=== PATIENT | male | born 1955 | race Caucasian/White ===

== ENCOUNTER → 2019-12-12 10:51 | Outpatient (CLI) | payer MEDICARE, SELFPAY ==
[2019-12-12 21:16] LABS: COVID19 Sendout Not Detected (Not Detect)
== END ==
PROVIDERS: Visit Provider Registered Nurse
DX: Z01.812 Encounter for preprocedural laboratory examination (principal)
CPT/HCPCS: 87635

== ENCOUNTER 2019-12-17 06:43 | Day surgery (SDC) | payer MEDICARE, SELFPAY ==
[2019-12-11 11:51] VITALS: BMI 47.0
[2019-12-17] VITALS (7 sets, daily range): BP systolic 133–171; BP diastolic 70–85; PULSE 89–96; RESP 10–18; TEMP 37.2; O2SAT 92–95; BMI 47.0
--- NOTE | 2019-12-17 07:20 | SUR.OPER ---
Supine on padded OR bed, head on pillow, arms secured on padded arm boards at <90 degrees abduction, legs uncrossed, safety belt at thigh, tape over blanket over lower legs.
[2019-12-17] MEDS: LACTATED RINGERS 1,000 ML 42 ML IV (07:37)
--- NOTE | 2019-12-17 08:23 | PM.PREOP ---
Pre-operative Note COVID-19 COVID-19 status: Negative Interval Note History & Physical reviewed/Exam performed by Physician: Yes Changes to H&P: No
[2019-12-17] MEDS: CEFAZOLIN 2 GM/100 ML FROZ.PIGGY IV (08:24)
[2019-12-17] MEDS: CEFAZOLIN 1 GM/50 ML FROZ.PIGGY IV (08:24)
[2019-12-17] MEDS: BUPIVACAINE 0.5% (PF) VIAL 30 ML INJ (08:51)
[2019-12-17] MEDS: OXYCODONE IR 5 MG TABLET PO (10:14)
--- NOTE | 2019-12-17 18:09 | PM.OP.1 ---
Operative Date/Time/Diagnoses Date of procedure: 12/17/19 Time of procedure: 10:00 Pre-op diagnosis: Umbilical hernia acutely symptomatic but reducible. Post-op diagnosis: same Procedure & Clinicians Procedure: Repair of hernia with overlay mesh Same procedure as scheduled: Yes Indications: Symptomatic umbilical hernia. Surgeon: Evaristo Harris Click Yes if Unassisted: Yes Anesthesia Type: General Operative Notes Findings: Small defect. Easily reducible. Closure Type: primary Specimen(s): none sent Prosthetic devices, grafts, tissues, transplants, or devices: Light weight mesh overlay Estimated Blood Loss (mL): 10 Blood products transfused: none Procedure in detail: The patient was placed supine on the operating room table and underwent general LMA anesthesia. He was prepped and draped in the usual fashion. A curvilinear incision was made beneath his umbilicus and carried down under direct vision into the level of the fascia. The hernia sac was encountered and circumferentially dissected. It was dissected off the overlying umbilicus. I decided not to enter it but to reduce it and to keep the peritoneum intact and tried to place a piece of mesh under this. However when I completed circumferential dissection off the fascial ring it was pretty clear that this opening was small and I would have difficulty getting mesh under it. Rather than extend the defect I chose to close it primarily in incorporate lightweight mesh over it. This was accomplished using 1. Tycron on the fascia and 0 Tycron to secure the mesh to the anterior fascia. The piece of mesh placed and flattened went approximately 3-5 cm beyond the fascial defect once closed. The subcu was closed with 3 0 Vicryl tacking the umbilicus down to the fascia. Skin was closed running 4 0 Vicryl subcuticular stitch and Steri-Strips. Dressing was applied the patient was awakened extubated taken recovery room good condition Complications: none Post-operative Condition: stable Disposition: PACU
== END 2019-12-17 10:40 | disposition home or self-care (01) ==
PROVIDERS: Referring Provider Specialist; Visit Provider Specialist
PROC: (CPT 49585; principal; 2019-12-17 07:45)
DX: K42.9 Umbilical hernia without obstruction or gangrene (principal); I10 Essential (primary) hypertension; E03.9 Hypothyroidism, unspecified
CPT/HCPCS: 49585; C1781; J0690; J1100; J2250; J2405; J2704; J3010

== ENCOUNTER 2023-02-19 16:27 | Observation (INO) | payer OTHER, SELFPAY ==
[2023-02-19] VITALS (24 sets, daily range): BP systolic 123–232; BP diastolic 54–107; PULSE 53–78; RESP 11–36; TEMP 36.2–36.4; O2SAT 90–98; BMI 36.9
--- NOTE | 2023-02-19 16:33 | DI.CT.S_ITS ---
PROCEDURE: CT ANGIO CHEST ABDOMEN PELVIS INDICATIONS: 68-year-old male with severe abdominal pain, history of cirrhosis and esophageal varices treated with TIPS shunt and coils. TECHNIQUE: Precontrast 5 mm thick sections acquired from the lung apices to the iliac crests. After the administration of intravenous contrast, 2.5 mm thick sections again acquired from the lung apices to the iliac crests. Maximum intensity projection (MIP) oblique sagittal and coronal reformats were then acquired. For radiation dose reduction, the following was used: automated exposure control. COMPARISON: [facility], CT, CT CHEST WITHOUT CONTRAST, 12/20/2019, 16:40. FINDINGS: Chest: Cardiovascular: Heart size is normal. No evidence of pulmonary embolism, aortic aneurysm or dissection. Dense coronary artery vascular calcification. Lungs and pleural spaces: Emphysematous changes pulmonary parenchyma. Several right lower lobe pulmonary ground-glass nodules measure up to 9 mm Lymph nodes: No mediastinal, hilar or axillary adenopathy. Mediastinum: Unremarkable. No hiatal hernia. Thyroid within normal limits. Chest Wall and Bones: Bilateral gynecomastia Abdomen and Pelvis: Liver: Hepatic cirrhosis with capsular micro nodularity. TIPS shunt catheter in appropriate position, but patency is not evaluated given phase of enhancement Biliary system: Cholecystectomy Pancreas: Unremarkable without mass or inflammation evident. Spleen: The spleen is enlarged at 12.2 cm. No intrinsic mass lesion. Adrenals: Normal morphology and density. Reproductive system: Unremarkable as visualized. Urinary system: Normal renal size and attenuation. No renal calculi, hydronephrosis, or solid mass present. Urinary bladder unremarkable. Gastrointestinal system: The bowel is unremarkable with no evidence of bowel obstruction or inflammation. The stomach appears unremarkable. Multiple diverticula arise from the sigmoid colon without evidence of diverticulitis. Appendix: No findings to suggest acute appendicitis. Lymph nodes: No mesenteric or retroperitoneal adenopathy. Peritoneal spaces: No free air. No free fluid. Vasculature: Several para soft shelter vascular coils noted . Aorta unremarkable without aneurysm or dissection. No significant vascular shunts appreciated. Abdominal wall: Abdominal wall intact without evidence of ventral or inguinal hernias. Musculoskeletal: Normal bone mineralization. Degenerative disc disease and arthropathy noted in lower lumbar spine. No acute fractures. IMPRESSION: 1. Hepatic cirrhosis, TIPS shunt catheter and variceal coils noted. No significant patent collateral vessels appreciated. No ascites. 2. Diverticulosis without evidence of diverticulitis. Degenerative disc disease. 3. Right lower lobe ground-glass nodules measure less than 1 cm probably infectious or inflammatory. Consider 1 year follow-up. Approved by: Anthony Welch M.D. on 02/19/2023 at 16:48
--- NOTE | 2023-02-19 16:34 | ED_ITS ---
HPI - General Adult <Sherman Horvath DO - Last Filed: 02/19/23 17:15> General Chief complaint: Abdominal Pain Stated complaint: abd pain Time Seen by Provider: 02/19/23 16:32 History of Present Illness HPI narrative: 68-year-old male former smoker with history of hypertension, hypothyroid, extensive alcohol history resulting in cirrhosis, reported known gastric varices, TIPS procedure in 2020 at [facility] presents by EMS for evaluation of a sudden onset extreme abdominal pain with radiation to his back that brought him to his knees just prior to arrival. He was out eating with his and had this pain, he has had nausea and vomiting as well. He reports that he had endoscopy yesterday which was performed for routine screening. He denies any change in medications. He is had no fever or chills. Denies chest pain or shortness of breath. He was given fentanyl and Zofran prior to his arrival by EMS is feeling better. He is extremely hypertensive. He had a relatively similar episode yesterday which resolved on its own, also after eating Related Data Home Medications Medication Instructions Recorded Confirmed ascorbic acid (vitamin C) 100 mg 100 mg PO DAILY 02/19/23 02/19/23 tablet (Vitamin C) furosemide 40 mg tablet 20 mg PO DAILY 02/19/23 02/19/23 levothyroxine 150 mcg tablet 300 mcg PO QAM 02/19/23 02/19/23 magnesium 1 tab PO DAILY 02/19/23 02/19/23 multivit with minerals-iron 18 1 tab PO DAILY 02/19/23 02/19/23 mg-folic ac 400 mcg-vit K 25 mcg tablet (Adults Multivitamin) spironolactone 50 mg tablet 50 mg PO DAILY 02/19/23 02/19/23 vitamin B complex-vit B12 1 tab PO DAILY 02/19/23 02/19/23 zinc 25 mg tablet 1 mg PO DAILY 02/19/23 02/19/23 Allergies Allergy/AdvReac Type Severity Reaction Status Date / Time acetaminophen [From Tylenol] Allergy Intermediate Verified 12/17/19 07:21 Review of Systems <Shermna Horvath DO - Last Filed: 02/19/23 17:15> Review of Systems Narrative: GENERAL: Denies chills, fatigue, malaise, fever, sweats. HEENT: Denies sinus pain, ear pain, sore throat, difficulty swallowing, dizziness. RESPIRATORY: Denies dyspnea, cough, wheezing, hemoptysis, sputum. CARDIOVASCULAR: Denies chest pain, palpitations, orthopnea, edema, GASTROINTESTINAL: See HPI : Denies dysuria, frequency, incontinence, hematuria, urinary retention. MUSCULOSKELETAL: denies weakness, joint pain, or bony pain SKIN: Denies rash, skin lesions, or other NEUROLOGIC: Denies weakness, headache, numbness, change in speech, confusion, seizures, incoordination. PSYCHIATRIC: No concerning psychosocial issues. 12 point review of systems is negative except for those stated above Patient History <Sherman Horvath DO - Last Filed: 02/19/23 17:15> Medical History Essential hypertension History of kidney stones Hypothyroidism (acquired) Surgical History Status post laparoscopic cholecystectomy Social History household members: spouse Smoking Status: Former smoker alcohol intake: former substance use type: marijuana Smoking Status: Former smoker alcohol intake frequency: holidays/special occasions only Substance Use Type: marijuana Exam <Sherman Horvath DO - Last Filed: 02/19/23 17:15> Narrative Exam Narrative: GENERAL: [68] year old patient appears stated age. Well-developed patient, in mild distress. Holding an emesis bag HEAD: Atraumatic. Normocephalic. EYES: Pupils equal round and reactive. Extraocular motions intact. No scleral icterus. No injection or drainage. ENT: Nose without bleeding, purulent drainage. Throat without erythema, tonsillar hypertrophy or exudate. Airway patent. NECK: Trachea midline. Non tender CARDIOVASCULAR: Regular rate and rhythm without murmurs, gallops, or rubs. RESPIRATORY: Clear to auscultation. Breath sounds equal bilaterally. No wheezes, rales, or rhonchi. GASTROINTESTINAL: Abdomen soft, tender to palpate in the epigastrium nondistended. EXTREMITIES: No edema or joint tenderness. BACK: Nontender without deformity or crepitance. No flank tenderness. NEURO: AOx3. SKIN: No rash or erythema of visible areas Initial Vital Signs Initial Vital Signs: Vital Signs Temperature 97.6 F 02/19/23 16:29 Pulse Rate 78 02/19/23 16:29 Respiratory Rate 16 02/19/23 16:29 Blood Pressure 232/107 H 02/19/23 16:29 Pulse Oximetry 97 02/19/23 16:29 Oxygen Delivery Method Room Air 02/19/23 16:29 <Lilo Page, DO - Last Filed: 02/19/23 20:36> Initial Vital Signs Initial Vital Signs: Vital Signs Temperature 97.6 F 02/19/23 16:29 Pulse Rate 78 02/19/23 16:29 Respiratory Rate 16 02/19/23 16:29 Blood Pressure 232/107 H 02/19/23 16:29 Pulse Oximetry 97 02/19/23 16:29 Oxygen Delivery Method Room Air 02/19/23 16:29 Course <Sherman Horvath, DO - Last Filed: 02/19/23 17:15> Orders Ordered: Hydralazine HCl (Hydralazine 25 Mg Tablet) 25 mg PO Q4HR PRN PRN Reason: SBP >160 Sodium Chloride (Normal Saline 0.9%) 1,000 mls @ 125 mls/hr IV CONT [facility] Last Admin: 02/19/23 21:45 Dose: 125 mls/hr Documented By: BRONWYN Levothyroxine Sodium (Levothyroxine 50 Mcg Tablet) 50 mcg PO 0600 [facility] Losartan Potassium (Losartan 25 Mg Tablet) 25 mg PO DAILY [facility] Morphine Sulfate (Morphine 4 Mg/Ml Inj) 4 mg IV Q2HR PRN PRN Reason: Abdominal pain Ondansetron HCl (Ondansetron 4 Mg/2 Ml Inj) 4 mg IV Q4HR PRN PRN Reason: Nausea And Vomiting Oxycodone HCl (Oxycodone Ir 5 Mg Tablet) 5 mg PO Q4H PRN PRN Reason: Pain, Moderate (4-6) Pantoprazole Sodium (Pantoprazole 40 Mg Vial) 40 mg IV BID [facility] Last Admin: 02/19/23 22:43 Dose: Not Given Documented By: BRONWYN Discontinued Medications Morphine Sulfate (Morphine 4 Mg/Ml Inj) 4 mg IV Q2HR [facility] Last Admin: 02/19/23 22:49 Dose: 4 mg Documented By: BRONWYN Pantoprazole Sodium (Pantoprazole 40 Mg Vial) 40 mg IV NOW ONE Stop: 02/19/23 16:33 Last Admin: 02/19/23 16:40 Dose: 40 mg Documented By: CTS Vital Signs Vital signs: Vital Signs - 8 hr 02/19/23 16:29 02/19/23 16:37 02/19/23 17:06 Temperature 97.6 F Pulse Rate 78 76 Respiratory Rate 16 14 Blood Pressure 232/107 H 185/81 H Pulse Oximetry 97 95 Oxygen Delivery Method Room Air 02/19/23 16:40 02/19/23 16:40 02/19/23 17:00 Temperature Pulse Rate 74 64 Respiratory Rate 14 25 H Blood Pressure 214/99 H Pulse Oximetry 94 96 Oxygen Delivery Method 02/19/23 17:05 02/19/23 17:05 02/19/23 17:10 Temperature Pulse Rate 69 Respiratory Rate 12 Blood Pressure 185/81 H 211/87 H Pulse Oximetry 97 Oxygen Delivery Method 02/19/23 17:10 02/19/23 17:17 02/19/23 17:17 Temperature Pulse Rate 58 L 76 Respiratory Rate 36 H Blood Pressure 191/81 H Pulse Oximetry 98 96 Oxygen Delivery Method 02/19/23 17:20 02/19/23 17:20 02/19/23 17:25 Temperature Pulse Rate 62 63 Respiratory Rate 18 14 Blood Pressure 189/74 H Pulse Oximetry 98 98 Oxygen Delivery Method 02/19/23 17:25 02/19/23 17:30 02/19/23 17:30 Temperature Pulse Rate 63 Respiratory Rate 11 L Blood Pressure 175/81 H 180/82 H Pulse Oximetry 96 Oxygen Delivery Method 02/19/23 17:35 02/19/23 17:35 02/19/23 18:00 Temperature Pulse Rate 66 Respiratory Rate 21 Blood Pressure 168/79 H 156/74 H Pulse Oximetry 94 Oxygen Delivery Method 02/19/23 18:00 02/19/23 18:30 02/19/23 18:56 Temperature Pulse Rate 74 60 Respiratory Rate 15 Blood Pressure 167/78 H Pulse Oximetry 94 Oxygen Delivery Method 02/19/23 18:56 02/19/23 19:00 02/19/23 19:01 Temperature Pulse Rate 68 59 L 60 Respiratory Rate Blood Pressure Pulse Oximetry 96 95 96 Oxygen Delivery Method 02/19/23 19:01 02/19/23 19:30 02/19/23 19:31 Temperature Pulse Rate 71 Respiratory Rate Blood Pressure 167/72 H 130/60 Pulse Oximetry 90 L Oxygen Delivery Method 02/19/23 19:31 Temperature Pulse Rate 67 Respiratory Rate Blood Pressure Pulse Oximetry 94 Oxygen Delivery Method <Lilo Page DO - Last Filed: 02/19/23 20:36> Orders Ordered: Hydralazine HCl (Hydralazine 25 Mg Tablet) 25 mg PO Q4HR PRN PRN Reason: SBP >160 Sodium Chloride (Normal Saline 0.9%) 1,000 mls @ 125 mls/hr IV CONT [facility] Last Admin: 02/19/23 21:45 Dose: 125 mls/hr Documented By: BRONWYN Levothyroxine Sodium (Levothyroxine 50 Mcg Tablet) 50 mcg PO 0600 [facility] Losartan Potassium (Losartan 25 Mg Tablet) 25 mg PO DAILY [facility] Morphine Sulfate (Morphine 4 Mg/Ml Inj) 4 mg IV Q2HR PRN PRN Reason: Abdominal pain Ondansetron HCl (Ondansetron 4 Mg/2 Ml Inj) 4 mg IV Q4HR PRN PRN Reason: Nausea And Vomiting Oxycodone HCl (Oxycodone Ir 5 Mg Tablet) 5 mg PO Q4H PRN PRN Reason: Pain, Moderate (4-6) Pantoprazole Sodium (Pantoprazole 40 Mg Vial) 40 mg IV BID [facility] Last Admin: 02/19/23 22:43 Dose: Not Given Documented By: BRONWYN Discontinued Medications Morphine Sulfate (Morphine 4 Mg/Ml Inj) 4 mg IV Q2HR [facility] Last Admin: 02/19/23 22:49 Dose: 4 mg Documented By: BRONWYN Pantoprazole Sodium (Pantoprazole 40 Mg Vial) 40 mg IV NOW ONE Stop: 02/19/23 16:33 Last Admin: 02/19/23 16:40 Dose: 40 mg Documented By: ARTI Vital Signs Vital signs: Vital Signs - 8 hr 02/19/23 16:29 02/19/23 16:37 02/19/23 17:06 Temperature 97.6 F Pulse Rate 78 76 Respiratory Rate 16 14 Blood Pressure 232/107 H 185/81 H Pulse Oximetry 97 95 Oxygen Delivery Method Room Air 02/19/23 16:40 02/19/23 16:40 02/19/23 17:00 Temperature Pulse Rate 74 64 Respiratory Rate 14 25 H Blood Pressure 214/99 H Pulse Oximetry 94 96 Oxygen Delivery Method 02/19/23 17:05 02/19/23 17:05 02/19/23 17:10 Temperature Pulse Rate 69 Respiratory Rate 12 Blood Pressure 185/81 H 211/87 H Pulse Oximetry 97 Oxygen Delivery Method 02/19/23 17:10 02/19/23 17:17 02/19/23 17:17 Temperature Pulse Rate 58 L 76 Respiratory Rate 36 H Blood Pressure 191/81 H Pulse Oximetry 98 96 Oxygen Delivery Method 02/19/23 17:20 02/19/23 17:20 02/19/23 17:25 Temperature Pulse Rate 62 63 Respiratory Rate 18 14 Blood Pressure 189/74 H Pulse Oximetry 98 98 Oxygen Delivery Method 02/19/23 17:25 02/19/23 17:30 02/19/23 17:30 Temperature Pulse Rate 63 Respiratory Rate 11 L Blood Pressure 175/81 H 180/82 H Pulse Oximetry 96 Oxygen Delivery Method 02/19/23 17:35 02/19/23 17:35 02/19/23 18:00 Temperature Pulse Rate 66 Respiratory Rate 21 Blood Pressure 168/79 H 156/74 H Pulse Oximetry 94 Oxygen Delivery Method 02/19/23 18:00 02/19/23 18:30 02/19/23 18:56 Temperature Pulse Rate 74 60 Respiratory Rate 15 Blood Pressure 167/78 H Pulse Oximetry 94 Oxygen Delivery Method 02/19/23 18:56 02/19/23 19:00 02/19/23 19:01 Temperature Pulse Rate 68 59 L 60 Respiratory Rate Blood Pressure Pulse Oximetry 96 95 96 Oxygen Delivery Method 02/19/23 19:01 02/19/23 19:30 02/19/23 19:31 Temperature Pulse Rate 71 Respiratory Rate Blood Pressure 167/72 H 130/60 Pulse Oximetry 90 L Oxygen Delivery Method 02/19/23 19:31 Temperature Pulse Rate 67 Respiratory Rate Blood Pressure Pulse Oximetry 94 Oxygen Delivery Method Medical Decision Making <Sherman Horvath, DO - Last Filed: 02/19/23 17:15> Lab Data 02/19/23 14:35 02/19/23 14:35 Labs: Lab Results 02/19/23 02/19/23 02/19/23 Range/Units 14:35 14:35 14:35 WBC 14.3 H (4.5-11.0) X10^3/uL RBC 4.82 (4.5-5.9) X10^6/uL Hgb 15.7 (13.5-17.5) g/dL Hct 44.9 (41-53) % MCV 93.2 (80-100) fL MCH 32.7 (26-34) PG MCHC 35.0 (30-36) % RDW 15.5 H (11.6-14.8) % Plt Count 134 L (150-400) X10^3/uL Neut % (Auto) 51.0 (50-75) % Lymph % (Auto) 32.2 (25-40) % [place] % (Auto) 13.1 (3-14) % Eos % (Auto) 2.7 (2-4) % Baso % (Auto) 1.0 (0-2) % Neut # (Auto) 7300 H (2063-1533) /uL Lymph # (Auto) 4600 H (8903-3968) /uL [place] # (Auto) 1900 H (0-900) /uL Eos # (Auto) 400 (0-450) /uL Baso # (Auto) 100 (0-100) /uL PT 13.0 H (10.1-12.7) SECONDS INR 1.1 (0.9-1.3) APTT 37 H (26-36) SECONDS Sodium 134 L (137-145) mmol/L Potassium 4.0 (3.4-5.1) mmol/L Chloride 102 (98-107) mmol/L Carbon Dioxide 23 (22-32) mmol/L BUN 32 H (9-20) mg/dL Creatinine 1.48 H (0.66-1.25) mg/dL Estimated GFR 51 L (>60) mL/min BUN/Creatinine Ratio 21.6 (6-22) Glucose 150 H (80-110) mg/dL Lactate (0.7-2.1) mmol/L Calcium 9.0 (8.4-10.2) mg/dL Magnesium 1.6 (1.6-2.3) mg/dL Total Bilirubin 1.2 (0.2-1.3) mg/dL AST 62 H (17-59) IU/L ALT 49 (<50) IU/L Alkaline Phosphatase 225 H (38-126) U/L Total Creatine Kinase 38 L (55-170) U/L Troponin I 0.056 H (0.01-0.034) ng/mL NT-Pro-B Natriuret Pep 355 H (<125) pg/mL Total Protein 7.8 (6.3-8.2) g/dL Albumin 4.1 (3.5-5.0) g/dL Globulin 3.7 (1.7-4.1) g/dL Albumin/Globulin Ratio 1.1 (1.0-2.8) Lipase 2608 H (23-300) U/L Blood Type Antibody Screen 02/19/23 02/19/23 02/19/23 Range/Units 14:35 14:35 18:25 WBC (4.5-11.0) X10^3/uL RBC (4.5-5.9) X10^6/uL Hgb (13.5-17.5) g/dL Hct (41-53) % MCV (80-100) fL MCH (26-34) PG MCHC (30-36) % RDW (11.6-14.8) % Plt Count (150-400) X10^3/uL Neut % (Auto) (50-75) % Lymph % (Auto) (25-40) % [place] % (Auto) (3-14) % Eos % (Auto) (2-4) % Baso % (Auto) (0-2) % Neut # (Auto) (4752-4987) /uL Lymph # (Auto) (8176-2853) /uL [place] # (Auto) (0-900) /uL Eos # (Auto) (0-450) /uL Baso # (Auto) (0-100) /uL PT (10.1-12.7) SECONDS INR (0.9-1.3) APTT (26-36) SECONDS Sodium (137-145) mmol/L Potassium (3.4-5.1) mmol/L Chloride (98-107) mmol/L Carbon Dioxide (22-32) mmol/L BUN (9-20) mg/dL Creatinine (0.66-1.25) mg/dL Estimated GFR (>60) mL/min BUN/Creatinine Ratio (6-22) Glucose (80-110) mg/dL Lactate 2.5 H (0.7-2.1) mmol/L Calcium (8.4-10.2) mg/dL Magnesium (1.6-2.3) mg/dL Total Bilirubin (0.2-1.3) mg/dL AST (17-59) IU/L ALT (<50) IU/L Alkaline Phosphatase (38-126) U/L Total Creatine Kinase (55-170) U/L Troponin I 0.087 H (0.01-0.034) ng/mL NT-Pro-B Natriuret Pep (<125) pg/mL Total Protein (6.3-8.2) g/dL Albumin (3.5-5.0) g/dL Globulin (1.7-4.1) g/dL Albumin/Globulin Ratio (1.0-2.8) Lipase (23-300) U/L Blood Type O Positive Antibody Screen Negative 02/19/23 Range/Units 18:40 WBC (4.5-11.0) X10^3/uL RBC (4.5-5.9) X10^6/uL Hgb (13.5-17.5) g/dL Hct (41-53) % MCV (80-100) fL MCH (26-34) PG MCHC (30-36) % RDW (11.6-14.8) % Plt Count (150-400) X10^3/uL Neut % (Auto) (50-75) % Lymph % (Auto) (25-40) % [place] % (Auto) (3-14) % Eos % (Auto) (2-4) % Baso % (Auto) (0-2) % Neut # (Auto) (1680-8950) /uL Lymph # (Auto) (1258-8635) /uL [place] # (Auto) (0-900) /uL Eos # (Auto) (0-450) /uL Baso # (Auto) (0-100) /uL PT (10.1-12.7) SECONDS INR (0.9-1.3) APTT (26-36) SECONDS Sodium (137-145) mmol/L Potassium (3.4-5.1) mmol/L Chloride (98-107) mmol/L Carbon Dioxide (22-32) mmol/L BUN (9-20) mg/dL Creatinine (0.66-1.25) mg/dL Estimated GFR (>60) mL/min BUN/Creatinine Ratio (6-22) Glucose (80-110) mg/dL Lactate 1.4 (0.7-2.1) mmol/L Calcium (8.4-10.2) mg/dL Magnesium (1.6-2.3) mg/dL Total Bilirubin (0.2-1.3) mg/dL AST (17-59) IU/L ALT (<50) IU/L Alkaline Phosphatase (38-126) U/L Total Creatine Kinase (55-170) U/L Troponin I (0.01-0.034) ng/mL NT-Pro-B Natriuret Pep (<125) pg/mL Total Protein (6.3-8.2) g/dL Albumin (3.5-5.0) g/dL Globulin (1.7-4.1) g/dL Albumin/Globulin Ratio (1.0-2.8) Lipase (23-300) U/L Blood Type Antibody Screen MDM Narrative Medical decision making narrative: CC: 68 year old male with severe epigastric pain with radiation to his back Complicating co-morbidities: Age, hypertension, prior liver history status post TIPS, recent endoscopy Data collected from: Patient Differential considered, but not limited to: Pancreatitis versus gallbladder disease versus dissection versus other Exam documented above, pertinent findings include: Severe epigastric pain on exam, heart rate regular, lungs clear Lab Test results independently reviewed as above. Pertinent findings: Leukocytosis without true left shift, no signs of anemia, creatinine 1.48, chief FR 51, lactate 2.5, troponin 0.056, lipase 2608 Independently reviewed EKG as above Imaging studies independently reviewed: Scores Used: MIPS Elements: Consultations: Treatments: Re-evaluations: Discussion: Disposition: see below, along with detailed discharge instructions that have been reviewed with patient as well as indications for ED re-evaluation and additional outpatient follow up <Lilo Page, DO - Last Filed: 02/19/23 20:36> Lab Data Labs: Lab Results 02/19/23 02/19/23 02/19/23 Range/Units 14:35 14:35 14:35 WBC 14.3 H (4.5-11.0) X10^3/uL RBC 4.82 (4.5-5.9) X10^6/uL Hgb 15.7 (13.5-17.5) g/dL Hct 44.9 (41-53) % MCV 93.2 (80-100) fL MCH 32.7 (26-34) PG MCHC 35.0 (30-36) % RDW 15.5 H (11.6-14.8) % Plt Count 134 L (150-400) X10^3/uL Neut % (Auto) 51.0 (50-75) % Lymph % (Auto) 32.2 (25-40) % [place] % (Auto) 13.1 (3-14) % Eos % (Auto) 2.7 (2-4) % Baso % (Auto) 1.0 (0-2) % Neut # (Auto) 7300 H (4687-1566) /uL Lymph # (Auto) 4600 H (9640-8630) /uL [place] # (Auto) 1900 H (0-900) /uL Eos # (Auto) 400 (0-450) /uL Baso # (Auto) 100 (0-100) /uL PT 13.0 H (10.1-12.7) SECONDS INR 1.1 (0.9-1.3) APTT 37 H (26-36) SECONDS Sodium 134 L (137-145) mmol/L Potassium 4.0 (3.4-5.1) mmol/L Chloride 102 (98-107) mmol/L Carbon Dioxide 23 (22-32) mmol/L BUN 32 H (9-20) mg/dL Creatinine 1.48 H (0.66-1.25) mg/dL Estimated GFR 51 L (>60) mL/min BUN/Creatinine Ratio 21.6 (6-22) Glucose 150 H (80-110) mg/dL Lactate (0.7-2.1) mmol/L Calcium 9.0 (8.4-10.2) mg/dL Magnesium 1.6 (1.6-2.3) mg/dL Total Bilirubin 1.2 (0.2-1.3) mg/dL AST 62 H (17-59) IU/L ALT 49 (<50) IU/L Alkaline Phosphatase 225 H (38-126) U/L Total Creatine Kinase 38 L (55-170) U/L Troponin I 0.056 H (0.01-0.034) ng/mL NT-Pro-B Natriuret Pep 355 H (<125) pg/mL Total Protein 7.8 (6.3-8.2) g/dL Albumin 4.1 (3.5-5.0) g/dL Globulin 3.7 (1.7-4.1) g/dL Albumin/Globulin Ratio 1.1 (1.0-2.8) Lipase 2608 H (23-300) U/L Blood Type Antibody Screen 02/19/23 02/19/23 02/19/23 Range/Units 14:35 14:35 18:25 WBC (4.5-11.0) X10^3/uL RBC (4.5-5.9) X10^6/uL Hgb (13.5-17.5) g/dL Hct (41-53) % MCV (80-100) fL MCH (26-34) PG MCHC (30-36) % RDW (11.6-14.8) % Plt Count (150-400) X10^3/uL Neut % (Auto) (50-75) % Lymph % (Auto) (25-40) % [place] % (Auto) (3-14) % Eos % (Auto) (2-4) % Baso % (Auto) (0-2) % Neut # (Auto) (6708-9664) /uL Lymph # (Auto) (8650-9398) /uL [place] # (Auto) (0-900) /uL Eos # (Auto) (0-450) /uL Baso # (Auto) (0-100) /uL PT (10.1-12.7) SECONDS INR (0.9-1.3) APTT (26-36) SECONDS Sodium (137-145) mmol/L Potassium (3.4-5.1) mmol/L Chloride (98-107) mmol/L Carbon Dioxide (22-32) mmol/L BUN (9-20) mg/dL Creatinine (0.66-1.25) mg/dL Estimated GFR (>60) mL/min BUN/Creatinine Ratio (6-22) Glucose (80-110) mg/dL Lactate 2.5 H (0.7-2.1) mmol/L Calcium (8.4-10.2) mg/dL Magnesium (1.6-2.3) mg/dL Total Bilirubin (0.2-1.3) mg/dL AST (17-59) IU/L ALT (<50) IU/L Alkaline Phosphatase (38-126) U/L Total Creatine Kinase (55-170) U/L Troponin I 0.087 H (0.01-0.034) ng/mL NT-Pro-B Natriuret Pep (<125) pg/mL Total Protein (6.3-8.2) g/dL Albumin (3.5-5.0) g/dL Globulin (1.7-4.1) g/dL Albumin/Globulin Ratio (1.0-2.8) Lipase (23-300) U/L Blood Type O Positive Antibody Screen Negative 02/19/23 Range/Units 18:40 WBC (4.5-11.0) X10^3/uL RBC (4.5-5.9) X10^6/uL Hgb (13.5-17.5) g/dL Hct (41-53) % MCV (80-100) fL MCH (26-34) PG MCHC (30-36) % RDW (11.6-14.8) % Plt Count (150-400) X10^3/uL Neut % (Auto) (50-75) % Lymph % (Auto) (25-40) % [place] % (Auto) (3-14) % Eos % (Auto) (2-4) % Baso % (Auto) (0-2) % Neut # (Auto) (4048-0630) /uL Lymph # (Auto) (5983-4288) /uL [place] # (Auto) (0-900) /uL Eos # (Auto) (0-450) /uL Baso # (Auto) (0-100) /uL PT (10.1-12.7) SECONDS INR (0.9-1.3) APTT (26-36) SECONDS Sodium (137-145) mmol/L Potassium (3.4-5.1) mmol/L Chloride (98-107) mmol/L Carbon Dioxide (22-32) mmol/L BUN (9-20) mg/dL Creatinine (0.66-1.25) mg/dL Estimated GFR (>60) mL/min BUN/Creatinine Ratio (6-22) Glucose (80-110) mg/dL Lactate 1.4 (0.7-2.1) mmol/L Calcium (8.4-10.2) mg/dL Magnesium (1.6-2.3) mg/dL Total Bilirubin (0.2-1.3) mg/dL AST (17-59) IU/L ALT (<50) IU/L Alkaline Phosphatase (38-126) U/L Total Creatine Kinase (55-170) U/L Troponin I (0.01-0.034) ng/mL NT-Pro-B Natriuret Pep (<125) pg/mL Total Protein (6.3-8.2) g/dL Albumin (3.5-5.0) g/dL Globulin (1.7-4.1) g/dL Albumin/Globulin Ratio (1.0-2.8) Lipase (23-300) U/L Blood Type Antibody Screen Imaging Data CTA chest/abd/pelvis: Radiologist's Impression: Deo Chambers??68??M??1955 ? Allergy/Adv: acetaminophen Close Chest/Abdomen/Pelvis CTA (Signed) Anthony Welch - 02/19/23 Launch?[place] [address] CT Scan Report Signed Patient: Deo Chambers MR#: [id number] : 1955 Acct:[id number] Age/Sex: 68 / M Date of Service: 02/19/23 Loc: ED Accession Number: [id number] ?? Procedure: CT angio chest abdomen pelvis Ordering Provider: Sherman Horvath D.O. PROCEDURE:? CT ANGIO CHEST ABDOMEN PELVIS ? INDICATIONS:? 68-year-old male with severe abdominal pain, history of cirrhosis and esophageal varices treated with TIPS shunt and coils.? ? TECHNIQUE:? Precontrast 5 mm thick sections acquired from the lung apices to the iliac crests.? After the administration of intravenous contrast, 2.5 mm thick sections again acquired from the lung apices to the iliac crests.? Maximum intensity projection (MIP) oblique sagittal and coronal reformats were then acquired.? For radiation dose reduction, the following was used:? automated exposure control.? ? COMPARISON:? [facility], CT, CT CHEST WITHOUT CONTRAST, 12/20/2019, 16:40. ? FINDINGS: ? Chest: ? Cardiovascular:? Heart size is normal.? No evidence of pulmonary embolism, aortic aneurysm or dissection.? Dense coronary artery vascular calcification. ? Lungs and pleural spaces:? Emphysematous changes pulmonary parenchyma.? Several right lower lobe pulmonary ground-glass nodules measure up to 9 mm ? Lymph nodes:? No mediastinal, hilar or axillary adenopathy. ? Mediastinum:? Unremarkable.? No hiatal hernia.? Thyroid within normal limits. ? Chest Wall and Bones:? Bilateral gynecomastia ? Abdomen and Pelvis: ? Liver:? Hepatic cirrhosis with capsular micro nodularity.? TIPS shunt catheter in appropriate position, but patency is not evaluated given phase of enhancement Biliary system:? Cholecystectomy ? Pancreas:? Unremarkable without mass or inflammation evident. ? Spleen:? The spleen is enlarged at 12.2 cm.? No intrinsic mass lesion. ? Adrenals:? Normal morphology and density. ? Reproductive system:? Unremarkable as visualized. ? Urinary system:? Normal renal size and attenuation. No renal calculi, hydronephrosis, or solid mass present.? Urinary bladder unremarkable. ? Gastrointestinal system:? The bowel is unremarkable with no evidence of bowel obstruction or inflammation. The stomach appears unremarkable.? Multiple diverticula arise from the sigmoid colon without evidence of diverticulitis. ? ? Appendix:? No findings to suggest acute appendicitis. ? Lymph nodes:? No mesenteric or retroperitoneal adenopathy. ? Peritoneal spaces: ? No free air. No free fluid.? ? Vasculature:? Several para soft prison vascular coils noted .? Aorta unremarkable without aneurysm or dissection.? No significant vascular shunts appreciated. ? Abdominal wall:? Abdominal wall intact without evidence of ventral or inguinal hernias. ? Musculoskeletal:? Normal bone mineralization.? Degenerative disc disease and arthropathy noted in lower lumbar spine.? No acute fractures.? ? IMPRESSION: ? 1.? Hepatic cirrhosis, TIPS shunt catheter and variceal coils noted.? No significant patent collateral vessels appreciated.? No ascites. ? 2. Diverticulosis without evidence of diverticulitis.? Degenerative disc diseas e. ? 3. Right lower lobe ground-glass nodules measure less than 1 cm probably infectious or inflammatory.? Consider 1 year follow-up.? Approved by: Anthony Welch M.D. on 02/19/2023 at 16:48? ECG Data Attestation: I personally reviewed and interpreted this ECG as follows: Interpretation: Sinus rhythm with first-degree AV block rate 80 AK 2-4, QRS of [address] elevation depression noted. EKG 2. Sinus bradycardia rate of 57 AK 208 QRS of [address] No [address] elevation or depression appreciated. No acute or dynamic changes noted. MDM Narrative Medical decision making narrative: CC: 68 year old male with severe epigastric pain with radiation to his back Complicating co-morbidities: Age, hypertension, prior liver history status post TIPS, recent endoscopy Data collected from: Patient Differential considered, but not limited to: Pancreatitis versus gallbladder disease versus dissection versus other Exam documented above, pertinent findings include: Severe epigastric pain on exam, heart rate regular, lungs clear Lab Test results independently reviewed as above. Pertinent findings: Leukocytosis without true left shift, no signs of anemia, creatinine 1.48, chief FR 51, lactate 2.5, troponin 0.056, lipase 2608 Independently reviewed EKG as above Imaging studies independently reviewed: Scores Used: MIPS Elements: Consultations: Treatments: Re-evaluations: Discussion: Disposition: see below, along with detailed discharge instructions that have been reviewed with patient as well as indications for ED re-evaluation and additional outpatient follow up. 02/19/23 Mank: Patient signed out to myself by Dr. Horvath. Patient feels much improved at this time. He is currently asymptomatic. Reviewed his labs history workup so far. He is not having any chest pain he states it was all epigastric in his has all resolved. Case was discussed with Gastroenterology through Spanish. At this time based on findings they agree with plan for treating his usual pancreatitis does not require transfer but also agree with plan to repeat lactate, if patient has worsening or having other new changes they are happy to be reconsulted as needed. Spoke with Dr. Fairchild tele hospitalist who accepts for observation. Discharge Plan Departure Patient Disposition: Admitted As Inpatient Clinical Impression: Pancreatitis, Ground glass opacity present on imaging of lung, Hepatic cirrhosis
--- NOTE | 2023-02-19 16:38 | PC.NURSE ---
Bedside FAST US performed by Dr Horvath. Pt tolerated well.
[2023-02-19] MEDS: PANTOPRAZOLE 40 MG VIAL IV (16:40)
[2023-02-19 16:45] LABS: Add Manual Diff / Slide Review NO; Basophils Absolute Auto 100 /uL (0-100); Eosinophils Absolute Auto 400 /uL (0-450); Eosinophils Percent Auto 2.7 % (2-4); Hematocrit 44.9 % (41-53); Hemoglobin 15.7 g/dL (13.5-17.5); Lymphocytes Absolute Auto 4600 /uL (1100-4500); Lymphocytes Percent Auto 32.2 % (25-40); Mean Corpuscular Hemoglobin 32.7 PG (26-34); Mean Corpuscular Volume 93.2 fL (80-100); Monocytes Absolute Auto 1900 /uL (0-900); Monocytes Percent Auto 13.1 % (3-14); Neutrophils Absolute Auto 7300 /uL (1500-7000); Platelet Count 134 X10^3/uL (150-400); Red Blood Cell Count 4.82 X10^6/uL (4.5-5.9); Red Cell Distribution Width 15.5 % (11.6-14.8); White Blood Cell Count 14.3 X10^3/uL (4.5-11.0)
[2023-02-19 16:54] LABS: INR 1.1 (0.9-1.3)
[2023-02-19 16:57] LABS: Lactate (Lactic Acid) 2.5 mmol/L (0.7-2.1); PTT Partial Thromboplastin Tim 37 SECONDS (26-36)
[2023-02-19 16:59] LABS: Alanine Aminotransferase 49 IU/L (<50); Albumin 4.1 g/dL (3.5-5.0); Albumin Globulin Ratio 1.1 (1.0-2.8); Alkaline Phosphatase 225 U/L (38-126); Aspartate Aminotransferase 62 IU/L (17-59); BUN Creatinine Ratio 21.6 (6-22); Bilirubin Total 1.2 mg/dL (0.2-1.3); Blood Urea Nitrogen 32 mg/dL (9-20); Carbon Dioxide 23 mmol/L (22-32); Chloride 102 mmol/L (98-107); Creatine Kinase 38 U/L (55-170); Estimated Glomerular Filt Rate 51 mL/min (>60); Globulin 3.7 g/dL (1.7-4.1); Glucose 150 mg/dL (80-110); HEMOLYSIS 38 (0-50); Magnesium 1.6 mg/dL (1.6-2.3); Sodium 134 mmol/L (137-145); Total Protein 7.8 g/dL (6.3-8.2)
[2023-02-19 17:07] LABS: Lipase 2608 U/L (23-300)
--- NOTE | 2023-02-19 17:08 | PC.NURSE ---
1645: Transported to CT with RN and monitor 1700: Back from CT. Pt c/o 09/30 epigastric abdominal pain with nausea. No vomiting. at bedside.
[2023-02-19 17:10] LABS: NT-proBNP (BNP-Adult 18+) 355 pg/mL (<125); Troponin I 0.056 ng/mL (0.01-0.034)
[2023-02-19 18:41] LABS: Reflexed Lactate in 2 Hours Y
[2023-02-19 18:58] LABS: Lactate 2HR (Lactic Acid Rflx) 1.4 mmol/L (0.7-2.1)
[2023-02-19 19:05] LABS: Troponin I 0.087 ng/mL (0.01-0.034)
--- NOTE | 2023-02-19 19:17 | PC.NURSE ---
Pt resting comfortably. still at bedside. Warm blankets provided as needed. Pt reports pain control and denies new or concerning symptoms.
--- NOTE | 2023-02-19 20:30 | PC.NURSE ---
Called handoff report to Sofia WEINBERG
[2023-02-19] MEDS: SODIUM CHLORIDE 0.9% 1,000 ML 125 ML IV (21:45)
--- NOTE | 2023-02-19 21:45 | P.HP_ITS ---
History of Present Illness History of Present Illness Chief complaint: abd pain Narrative: 68-year-old male former smoker with history of hypertension, hypothyroid, extensive alcohol history resulting in cirrhosis, reported known gastric varices, TIPS procedure in 2020 at [facility] presents by EMS for evaluation of a sudden onset extreme abdominal pain with radiation to his back that brought him to his knees just prior to arrival.? He was out eating with his and had this pain, he has had nausea and vomiting as well.? He reports that he had endoscopy yesterday which was performed for routine screening.? He denies any change in medications.? He is had no fever or chills.? Denies chest pain or shortness of breath.? He was given fentanyl and Zofran prior to his arrival by EMS is feeling better.? He is extremely hypertensive.? He had a relatively similar episode yesterday which resolved on its own, also after eating. The patient was found to have acute pancreatitisv and was consulted with GI in [facility]. Recommended no intervention and continue medical management. [facility] Medical History Essential hypertension History of kidney stones Hypothyroidism (acquired) Surgical History Status post laparoscopic cholecystectomy Social History household members: spouse Smoking Status: Former smoker substance use type: marijuana Meds Home Medications and Allergies Home Medications Medication Instructions Recorded Confirmed Type ascorbic acid (vitamin C) 100 mg 100 mg PO DAILY 02/19/23 02/19/23 History tablet (Vitamin C) furosemide 40 mg tablet 20 mg PO DAILY 02/19/23 02/19/23 History levothyroxine 150 mcg tablet 300 mcg PO QAM 02/19/23 02/19/23 History magnesium tab PO 02/19/23 History multivit with minerals-iron 18 1 tab PO DAILY 02/19/23 02/19/23 History mg-folic ac 400 mcg-vit K 25 mcg tablet (Adults Multivitamin) spironolactone 50 mg tablet 50 mg PO DAILY 02/19/23 02/19/23 History vitamin B complex-vit B12 02/19/23 History zinc 25 mg tablet mg PO 02/19/23 History Allergies Allergy/AdvReac Type Severity Reaction Status Date / Time acetaminophen [From Tylenol] Allergy Intermediate Verified 12/17/19 07:21 Review of Systems Review of Systems ROS: Yes All systems reviewed with the patient and are negative except as otherwise documented Constitutional Constitutional: Reports as per HPI Eyes Eyes: Denies as per HPI, Reports system reviewed and no additional complaints, except as documented, Denies blind spots, Denies blurry vision, Denies change in vision, Denies decreased night vision, Denies eye discharge, Denies dry eyes, Denies floaters, Denies irritation, Denies itchy eyes, Denies loss of peripheral vision, Denies loss of vision, Denies other visual disturbances and Reports spots in vision ENT Ears, Nose, Mouth, and Throat: Yes system reviewed and no additional complaints, except as documented and No dysphagia Cardiovascular Cardiovascular: Reports as per HPI and Reports system reviewed and no additional complaints, except as documented Respiratory Respiratory: Reports system reviewed and no additional complaints, except as documented Gastrointestinal Gastrointestinal: Denies as per HPI, Denies system reviewed and no additional complaints, except as documented, Reports abdominal pain, Denies belching, Denies melena, Reports bloating, Denies hematochezia, Denies change in bowel habits, Denies tenesmus, Denies change in stool character, Denies coffee ground emesis, Denies constipation, Denies cramping, Denies dysphagia, Denies excessive flatus, Denies early satiety, Denies heartburn, Denies fecal incontinence, Denie s loose stools, Denies nausea, Denies vomiting and Denies hematemesis Genitourinary Genitourinary: Reports system reviewed and no additional complaints, except as documented Musculoskeletal Musculoskeletal: Reports system reviewed and no additional complaints, except as documented Integumentary/Breasts Skin/Breast: Reports system reviewed and no additional complaints, except as documented Neurologic Neurologic: Reports system reviewed and no additional complaints, except as documented and Denies loss of vision Psychiatric Psychiatric: Reports system reviewed and no additional complaints, except as documented Endocrine Endocrine: Reports system reviewed and no additional complaints, except as docum ented Hematologic/Lymphatic Hematologic/Lymphatic: Reports system reviewed and no additional complaints, except as documented Allergic/Immunologic Allergic/Immunologic: Denies itchy eyes Exam Vital Signs (past 8 hours): - 02/19/23 16:29 02/19/23 16:37 02/19/23 17:06 Temperature 97.6 F Pulse Rate 78 76 Respiratory Rate 16 14 Blood Pressure 232/107 H 185/81 H Pulse Oximetry 97 95 Oxygen Delivery Method Room Air Oxygen Flow Rate 02/19/23 16:40 02/19/23 16:40 02/19/23 17:00 Temperature Pulse Rate 74 64 Respiratory Rate 14 25 H Blood Pressure 214/99 H Pulse Oximetry 94 96 Oxygen Delivery Method Oxygen Flow Rate 02/19/23 17:05 02/19/23 17:05 02/19/23 17:10 Temperature Pulse Rate 69 Respiratory Rate 12 Blood Pressure 185/81 H 211/87 H Pulse Oximetry 97 Oxygen Delivery Method Oxygen Flow Rate 02/19/23 17:10 02/19/23 17:17 02/19/23 17:17 Temperature Pulse Rate 58 L 76 Respiratory Rate 36 H Blood Pressure 191/81 H Pulse Oximetry 98 96 Oxygen Delivery Method Oxygen Flow Rate 02/19/23 17:20 02/19/23 17:20 02/19/23 17:25 Temperature Pulse Rate 62 63 Respiratory Rate 18 14 Blood Pressure 189/74 H Pulse Oximetry 98 98 Oxygen Delivery Method Oxygen Flow Rate 02/19/23 17:25 02/19/23 17:30 02/19/23 17:30 Temperature Pulse Rate 63 Respiratory Rate 11 L Blood Pressure 175/81 H 180/82 H Pulse Oximetry 96 Oxygen Delivery Method Oxygen Flow Rate 02/19/23 17:35 02/19/23 17:35 02/19/23 18:00 Temperature Pulse Rate 66 Respiratory Rate 21 Blood Pressure 168/79 H 156/74 H Pulse Oximetry 94 Oxygen Delivery Method Oxygen Flow Rate 02/19/23 18:00 02/19/23 18:30 02/19/23 18:56 Temperature Pulse Rate 74 60 Respiratory Rate 15 Blood Pressure 167/78 H Pulse Oximetry 94 Oxygen Delivery Method Oxygen Flow Rate 02/19/23 18:56 02/19/23 19:00 02/19/23 19:01 Temperature Pulse Rate 68 59 L 60 Respiratory Rate Blood Pressure Pulse Oximetry 96 95 96 Oxygen Delivery Method Oxygen Flow Rate 02/19/23 19:01 02/19/23 19:30 02/19/23 19:31 Temperature Pulse Rate 71 Respiratory Rate Blood Pressure 167/72 H 130/60 Pulse Oximetry 90 L Oxygen Delivery Method Oxygen Flow Rate 02/19/23 19:31 02/19/23 20:00 02/19/23 20:00 Temperature Pulse Rate 67 65 Respiratory Rate Blood Pressure 142/65 H Pulse Oximetry 94 93 Oxygen Delivery Method Oxygen Flow Rate 02/19/23 20:30 02/19/23 20:31 02/19/23 20:31 Temperature Pulse Rate 61 56 L Respiratory Rate Blood Pressure 138/64 Pulse Oximetry 92 95 Oxygen Delivery Method Oxygen Flow Rate 02/19/23 21:35 Temperature 97.1 F L Pulse Rate 53 L Respiratory Rate 16 Blood Pressure 136/54 L Pulse Oximetry 96 Oxygen Delivery Method Oxygen Flow Rate 0 Oxygen Delivery Method Room Air Oxygen Flow Rate 0 Const General: cooperative, healthy appearing, comfortable, well developed, well groomed and well hydrated [facility] Head: normal to inspection Nose: external nose normal and nasal mucous membranes and turbinates normal Mouth: oral mucosae normal Eyes General: appearance normal, both eyes and all related structures Neck Neck: normal visual inspection, full ROM and no meningeal signs Chest Chest: normal inspection of the chest Resp Effort & Inspection: normal respiratory effort and able to speak in complete sentences Auscultation: clear to auscultation bilaterally Cardio Palpation: normal PMI Rate: regular rate Rhythm: regular rhythm Heart Sounds: S1 normal and S2 normal GI Inspection: normal to inspection Palpation: soft and tender Percussion: normal to percussion Skin General: no rashes or lesions noted Neuro General: patient alert, patient awake, patient oriented x3, moves all extremities, no meningeal signs, no focal motor deficits and CN's II-XI intact bilaterally Extrem General: normal to inspection, full ROM and no pedal edema Psych Appearance: grossly normal Objective ECG Impression: normal sinus rhythm. First-degree AV block. Labs 02/19/23 14:35 02/19/23 14:35 Labs: Laboratory Results - last 24 hr 02/19/23 02/19/23 02/19/23 14:35 14:35 14:35 WBC 14.3 H RBC 4.82 Hgb 15.7 Hct 44.9 MCV 93.2 MCH 32.7 MCHC 35.0 RDW 15.5 H Plt Count 134 L Neut % (Auto) 51.0 Lymph % (Auto) 32.2 [place] % (Auto) 13.1 Eos % (Auto) 2.7 Baso % (Auto) 1.0 Neut # (Auto) 7300 H Lymph # (Auto) 4600 H [place] # (Auto) 1900 H Eos # (Auto) 400 Baso # (Auto) 100 PT 13.0 H INR 1.1 APTT 37 H Sodium 134 L Potassium 4.0 Chloride 102 Carbon Dioxide 23 BUN 32 H Creatinine 1.48 H Estimated GFR 51 L BUN/Creatinine Ratio 21.6 Glucose 150 H Lactate Calcium 9.0 Magnesium 1.6 Total Bilirubin 1.2 AST 62 H ALT 49 Alkaline Phosphatase 225 H Total Creatine Kinase 38 L Troponin I 0.056 H NT-Pro-B Natriuret Pep 355 H Total Protein 7.8 Albumin 4.1 Globulin 3.7 Albumin/Globulin Ratio 1.1 Lipase 2608 H Blood Type Antibody Screen 02/19/23 02/19/23 02/19/23 14:35 14:35 18:25 WBC RBC Hgb Hct MCV MCH MCHC RDW Plt Count Neut % (Auto) Lymph % (Auto) [place] % (Auto) Eos % (Auto) Baso % (Auto) Neut # (Auto) Lymph # (Auto) [place] # (Auto) Eos # (Auto) Baso # (Auto) PT INR APTT Sodium Potassium Chloride Carbon Dioxide BUN Creatinine Estimated GFR BUN/Creatinine Ratio Glucose Lactate 2.5 H Calcium Magnesium Total Bilirubin AST ALT Alkaline Phosphatase Total Creatine Kinase Troponin I 0.087 H NT-Pro-B Natriuret Pep Total Protein Albumin Globulin Albumin/Globulin Ratio Lipase Blood Type O Positive Antibody Screen Negative 02/19/23 18:40 WBC RBC Hgb Hct MCV MCH MCHC RDW Plt Count Neut % (Auto) Lymph % (Auto) [place] % (Auto) Eos % (Auto) Baso % (Auto) Neut # (Auto) Lymph # (Auto) [place] # (Auto) Eos # (Auto) Baso # (Auto) PT INR APTT Sodium Potassium Chloride Carbon Dioxide BUN Creatinine Estimated GFR BUN/Creatinine Ratio Glucose Lactate 1.4 Calcium Magnesium Total Bilirubin AST ALT Alkaline Phosphatase Total Creatine Kinase Troponin I NT-Pro-B Natriuret Pep Total Protein Albumin Globulin Albumin/Globulin Ratio Lipase Blood Type Antibody Screen Assessment & Plan Assessment and plan (1) Pancreatitis: Status: Acute Plan: suspect acute pancreatitis due to EGD on Monday. The patient reports similar but milder symptoms yesterday. -keep NPO and start aggressively on IV hydration -monitor serum electrolytes including calcium/magnesium and replace accordingly -strict I&O monitoring -supportive care with pain control and antiemetics as needed -start clear diet and advanced to low-fat diet as tolerated after 24-48 hours -recheck lipase in the morning -Hold spironolactone for now (2) Elevated troponin: Status: Acute Plan: Patient denies any chest pain. EKG no signs of ischemia -we will order serial cardiac enzymes -Telemetry -Morphine and nitroglycerin when necessary for chest pain -Hold any aspirin for now (3) Essential hypertension: Status: Acute Plan: - restart lisinopril - Continue with holding parameters - Continue to monitor blood pressure. - hold spironolactone for now (4) Hypothyroidism (acquired): Status: Acute Plan: -restart levothyroxine (5) Hepatic cirrhosis: Status: Acute Plan: stable. -LFT a.m. (6) Ground glass opacity present on imaging of lung: Status: Acute Plan: -check procalcitonine -Albuterol when necessary -Monitor oxygen leelv Plan stable. Quality VTE Deep Vein Thrombosis/Pulmonary Embolism Present on Admission: No
[2023-02-19] MEDS: MORPHINE 4 MG/ML INJ IV (22:49)
[2023-02-20 04:00] VITALS: BP 115/37; PULSE 66; RESP 15; TEMP 36.6; O2SAT 93
[2023-02-20] MEDS: LEVOTHYROXINE 50 MCG TABLET PO (05:08)
[2023-02-20] MEDS: SODIUM CHLORIDE 0.9% 1,000 ML 125 ML IV (05:12)
[2023-02-20] MEDS: LEVOTHYROXINE 100 MCG TABLET 300 MCG PO (06:07)
[2023-02-20 06:09] LABS: Cholesterol 135 mg/dL (140-199); HDL Cholesterol 38 mg/dL (40-60); LDL Cholesterol Calculated 83 mg/dL (<100); Triglycerides 68 mg/dL (35-150)
[2023-02-20 06:34] LABS: Alanine Aminotransferase 41 IU/L (<50); Albumin 2.9 g/dL (3.5-5.0); Albumin Globulin Ratio 0.9 (1.0-2.8); Alkaline Phosphatase 120 U/L (38-126); Aspartate Aminotransferase 47 IU/L (17-59); BUN Creatinine Ratio 21.9 (6-22); Bilirubin Total 1.4 mg/dL (0.2-1.3); Blood Urea Nitrogen 28 mg/dL (9-20); Calcium 8.5 mg/dL (8.4-10.2); Carbon Dioxide 27 mmol/L (22-32); Chloride 105 mmol/L (98-107); Estimated Glomerular Filt Rate > 60 mL/min (>60); Globulin 3.2 g/dL (1.7-4.1); Glucose 79 mg/dL (80-110); HEMOLYSIS < 15 (0-50); Potassium 4.4 mmol/L (3.4-5.1); Sodium 134 mmol/L (137-145); Total Protein 6.1 g/dL (6.3-8.2)
[2023-02-20 06:41] LABS: Lipase 223 U/L (23-300)
--- NOTE | 2023-02-20 07:53 | PM.PN.1 ---
Subjective Subjective Interval history: Feeling better. Is hungry. Has no abdominal or chest pain. Informed the patient that his troponin level went up and this needs to be monitored. Exam Vital Signs (past 8 hours): - 02/20/23 04:00 Temperature 97.9 F Pulse Rate 66 Respiratory Rate 15 Blood Pressure 115/37 L Pulse Oximetry 93 Oxygen Flow Rate 0 Oxygen Delivery Method Room Air Oxygen Flow Rate 0 Narrative Exam Narrative: General: In no acute medical distress. Alert and oriented. Cardiovascular: Heart sounds S1 and S2 with no extra sounds or murmurs Gastrointestinal: Soft. Nontender bowel sounds present Objective Labs 02/19/23 14:35 02/20/23 05:36 Labs: Laboratory Results - last 24 hr 02/19/23 02/19/23 02/19/23 14:35 14:35 14:35 WBC 14.3 H RBC 4.82 Hgb 15.7 Hct 44.9 MCV 93.2 MCH 32.7 MCHC 35.0 RDW 15.5 H Plt Count 134 L Neut % (Auto) 51.0 Lymph % (Auto) 32.2 [place] % (Auto) 13.1 Eos % (Auto) 2.7 Baso % (Auto) 1.0 Neut # (Auto) 7300 H Lymph # (Auto) 4600 H [place] # (Auto) 1900 H Eos # (Auto) 400 Baso # (Auto) 100 PT 13.0 H INR 1.1 APTT 37 H Sodium 134 L Potassium 4.0 Chloride 102 Carbon Dioxide 23 BUN 32 H Creatinine 1.48 H Estimated GFR 51 L BUN/Creatinine Ratio 21.6 Glucose 150 H Lactate Calcium 9.0 Magnesium 1.6 Total Bilirubin 1.2 AST 62 H ALT 49 Alkaline Phosphatase 225 H Total Creatine Kinase 38 L Troponin I 0.056 H NT-Pro-B Natriuret Pep 355 H Total Protein 7.8 Albumin 4.1 Globulin 3.7 Albumin/Globulin Ratio 1.1 Triglycerides Cholesterol LDL Cholesterol, Calc HDL Cholesterol Lipase 2608 H Blood Type Antibody Screen 02/19/23 02/19/23 02/19/23 14:35 14:35 18:25 WBC RBC Hgb Hct MCV MCH MCHC RDW Plt Count Neut % (Auto) Lymph % (Auto) [place] % (Auto) Eos % (Auto) Baso % (Auto) Neut # (Auto) Lymph # (Auto) [place] # (Auto) Eos # (Auto) Baso # (Auto) PT INR APTT Sodium Potassium Chloride Carbon Dioxide BUN Creatinine Estimated GFR BUN/Creatinine Ratio Glucose Lactate 2.5 H Calcium Magnesium Total Bilirubin AST ALT Alkaline Phosphatase Total Creatine Kinase Troponin I 0.087 H NT-Pro-B Natriuret Pep Total Protein Albumin Globulin Albumin/Globulin Ratio Triglycerides Cholesterol LDL Cholesterol, Calc HDL Cholesterol Lipase Blood Type O Positive Antibody Screen Negative 02/19/23 02/20/23 02/20/23 18:40 05:36 05:36 WBC RBC Hgb Hct MCV MCH MCHC RDW Plt Count Neut % (Auto) Lymph % (Auto) [place] % (Auto) Eos % (Auto) Baso % (Auto) Neut # (Auto) Lymph # (Auto) [place] # (Auto) Eos # (Auto) Baso # (Auto) PT INR APTT Sodium 134 L Potassium 4.4 Chloride 105 Carbon Dioxide 27 BUN 28 H Creatinine 1.28 H Estimated GFR > 60 BUN/Creatinine Ratio 21.9 Glucose 79 L Lactate 1.4 Calcium 8.5 Magnesium Total Bilirubin 1.4 H AST 47 ALT 41 Alkaline Phosphatase 120 D Total Creatine Kinase Troponin I NT-Pro-B Natriuret Pep Total Protein 6.1 L Albumin 2.9 L Globulin 3.2 Albumin/Globulin Ratio 0.9 L Triglycerides 68 Cholesterol 135 L LDL Cholesterol, Calc 83 HDL Cholesterol 38 L Lipase Blood Type Antibody Screen 02/20/23 02/20/23 05:36 05:36 WBC RBC Hgb Hct MCV MCH MCHC RDW Plt Count Neut % (Auto) Lymph % (Auto) [place] % (Auto) Eos % (Auto) Baso % (Auto) Neut # (Auto) Lymph # (Auto) [place] # (Auto) Eos # (Auto) Baso # (Auto) PT INR APTT Sodium Potassium Chloride Carbon Dioxide BUN Creatinine Estimated GFR BUN/Creatinine Ratio Glucose Lactate Calcium Magnesium Total Bilirubin AST ALT Alkaline Phosphatase Total Creatine Kinase Troponin I 0.150 H* NT-Pro-B Natriuret Pep Total Protein Albumin Globulin Albumin/Globulin Ratio Triglycerides Cholesterol LDL Cholesterol, Calc HDL Cholesterol Lipase 223 D Blood Type Antibody Screen [facility] Medical History Essential hypertension History of kidney stones Hypothyroidism (acquired) Surgical History Status post laparoscopic cholecystectomy Social History household members: spouse Smoking Status: Former smoker alcohol intake: former substance use type: marijuana Assessment & Plan Assessment & Plan narrative: 1. Pancreatitis:?Acute, clinically resolved. Lipase normal today. No abdominal pain. Advance diet to regular diet(2) Elevated troponin: ? 2. Elevated troponin:?Acute. Slight trending upward. No chest pain and no EKG changes initially of ischemia. Likely related to demand ischemia was severely elevated hyper tension on presentation. Follow troponin 4 hours after last drawn. Follow clinically. 3. Essential hypertension:?Acute. Resolved currently. Patient's regular doses of furosemide and spironolactone continue to be on hold. Follow clinically. 4. Hypothyroidism (acquired): Chronic present on admission. Continue with levothyroxine replacement. 5. Hepatic cirrhosis: Chronic. Present on admission. AST and ALT normal as well as alkaline phosphatase normal. Slight elevation of bilirubin. ? 6. Ground glass opacity present on imaging of lung: Acutely found on presentation. Likely secondary to inflammation/infection but patient not exhibiting any acute respiratory infection signs or symptoms. Recommendation is to monitor in [address] of the chest. Code status: Full code DVT prophylaxis: Initiate heparin 5000 units subQ b.i.d.(patient has elevated creatinine, reason for heparin) Surrogate decision maker: Life partner named Bozena Puga ? COVID-19 COVID-19 status: Not tested Time Spent With Patient Time with patient: 30 to 49 minutes with 50% spent counseling/coordinating care Quality VTE Deep Vein Thrombosis/Pulmonary Embolism Present on Admission: No MIPS - Admit I confirm the patient?s Advance Care Plan is present, Code status is documented, Surrogate decision maker is in patient?s record [If Yes, STOP here]: Yes MIPS - Meds 'Current medications' to include all prescriptions, [id number] products, herbals, cannabis/cannabidiol products, and vitamin/mineral/dietary (nutritional) supplements. I have utilized all available resources to obtain, update, or review the patient?s current medications. [If Yes, STOP here]: Yes
[2023-02-20 08:00] VITALS: BP 104/49; PULSE 60; RESP 18; TEMP 36.3; O2SAT 92
--- NOTE | 2023-02-20 08:52 | PC.NURSE ---
Addendum entered by Zoila Aguilar R.N. 02/20/23 12:49: Patient not having any discomfort to his abdomen or tenderness. Waiting for labs to be drawn at 1330 and he states I have to go home, my needs to leave. Addendum entered by Zoila Aguilar R.N. 02/20/23 10:08: Patients latest troponin at 0.124, aware by note. Addendum entered by Zoila Aguilar R.N. 02/20/23 10:05: Patient refused his blood pressure medication. States I am not going to take that Explained benefits, patients blood pressure was soft this morning with diastolic in the 40s. Patient denies any abdominal discomfort at this time. Original Note: Patient just ate a general diet for breakfast, he denies pain or nausea at this time. Bowel tones are hypoactive. IVF and tolerating well. Will give patient is po medications soon. He is comfortable at this time.
--- NOTE | 2023-02-20 09:20 | CM.DANOTE ---
Patient is a 68 yo male who was admitted on 02/19/23 for Abd Pain. Pt has [facility] MCR for insurance and his PCP is Steve Fermin. EMR was reviewed. Per MD, pt with hx of ETOH cirrhosis and admitted for acute pancreatitis and NPO. Per RN, pt's pain has been managed and and pt independent in room and no concerns identified. SW met bedside with pt and explained role and he confirms he lives in [place] with his and is active and independent at baseline, does not use DME and still drives. Pt denies any hx of HH or SNF and states his spouse is informally his DPOA and they are looking into updating their [facility] [place]. Pt confirms he has no hx of pancreatitis and hopes never to again as he states that was hard, the pain was so bad. Pt denies any current ETOH use. Pt is hopeful for d/c home today, states can transport, and does not anticipate any needs. Pt was changed changed to general diet and breakfast arrived in room and will see if pt can tolerate. Plan: SW to follow for plan of likely d/c home later today if he can tolerate general diet and any further identified discharge planning needs. DONELL [place] Discharge Planning/Care Management CM Discharge Assessment Start: 02/20/23 09:15 Freq: Status: Active Protocol: Document 02/20/23 09:15 BF (Rec: 02/20/23 09:20 BF [id number]) Discharge Planning Assessment Assigned Slab Puller DONELL Waggoner DPOA/Assigned Designee Name informally spouse Bozena Contact Information [phone] Advance Directives? No Advance Directives on File No History Provided By Patient,Medical Record Has Patient been admitted in last 30 No days? Prior Living Arrangements House Household Members spouse Type of transporation used prior to Drives own vehicle admit Independent with ADL's Yes Is patient alert and oriented? Yes Caregiver for Another No Barriers to Discharge No Discharge Plan Home Transportation Arrangement spouse plans to provide transport Referrals Initiated None needed Whiteboard Updated in Patient Room with Yes name and ext. # of Slab Puller Review Status In Process Please Provide Date Initial DC 02/20/23 Assessment Was Performed Next Review Type Continued Stay Review
[2023-02-20] MEDS: PANTOPRAZOLE 40 MG VIAL IV (09:24)
[2023-02-20] MEDS: MULTIVITAMIN 1 TABLET 1 TAB PO (09:24)
[2023-02-20 10:01] LABS: Troponin I 0.124 ng/mL (0.01-0.034)
[2023-02-20 11:39] VITALS: BP 107/49; PULSE 62; RESP 18; TEMP 36.2; O2SAT 96
[2023-02-20 14:20] LABS: Troponin I 0.094 ng/mL (0.01-0.034)
--- NOTE | 2023-02-20 15:42 | P.DS_ITS ---
History of Present Illness History of Present Illness Date Patient Seen: 02/20/23 Chief complaint: abd pain Narrative: Patient feeling better and eager to go home. Discharge Providers Provider Date of admission: 02/19/23 20:28 Discharge Date: 02/20/23 Primary care physician: Steve Fermin MD Discharge provider: Niesha Rivera MD Summary Hospital Course Discharge Diagnosis: Abdominal pain, acute present on admission Nausea vomiting, acute present on admission Hypertensive urgency, acute present on admission Acute pancreatitis, present on admission Elevated troponin: Acute, present on admission Hypothyroidism: Chronic, present on admission Hepatic cirrhosis: Chronic, present on admission Ground glass opacity present on imaging of lung: Acute present on admission. History of kidney stones ? ? ? Hospital Course: Carlyle Chambers 68-year-old male former smoker with history of hypertension, hypothyroid, extensive alcohol history resulting in cirrhosis, reported known gastric varices, TIPS procedure in 2020 at [facility] presented by EMS for evaluation of a sudden onset extreme abdominal pain with radiation to his back that brought him to his knees just prior to arrival.? He was out eating with his and had this pain, he has had nausea and vomiting as well.? He reported that he had endoscopy yesterday which was performed for routine screening.? He denied any change in medications.? He is had no fever or chills.? Denied chest pain or shortness of breath.? He was given fentanyl and Zofran prior to his arrival by EMS is feeling better.? He was extremely hypertensive.? He had a relatively similar episode on the day prior to presentation which resolved on its own, also after eating. The patient was found to have acute pancreatitis and was consulted with GI in [facility].? Recommended no intervention and continue medical management. Patient was NPO initially then transitioned to clear fluids. Once the pain settled to normal the patient was introduced to regular food. During the NPO and clear fluids date the patient had intravenous fluid hydration as well. During his hospital stay the patient's troponin elevated however after the 1st elevation, it abruptly decreased. Likely consistent with the uncontrolled hypertension causing cardiac strain at the time of admission. Patient was discharged without further cardiac workup. He was pain-free. Status at Discharge Cognitive/behavioral status at discharge: at baseline, oriented Functional status at discharge: independent ambulation Overall status at discharge: patient is back to baseline Time Spent with Patient Time spent: Greater than 30 minutes Exam Vital Signs (past 8 hours): - 02/20/23 08:00 02/20/23 11:39 Temperature 97.3 F L 97.1 F L Pulse Rate 60 62 Respiratory Rate 18 18 Blood Pressure 104/49 L 107/49 L Pulse Oximetry 92 96 Oxygen Flow Rate 0 0 Oxygen Delivery Method Room Air Oxygen Flow Rate 0 Narrative Exam Narrative: General:? In no acute medical distress.? Alert and oriented. Cardiovascular:? Heart sounds S1 and S2 with no extra sounds or murmurs Gastrointestinal:? Soft.? Nontender bowel sounds present Objective Labs 02/19/23 14:35 02/20/23 05:36 Labs: Laboratory Results - last 24 hr 02/19/23 02/19/23 02/19/23 14:35 14:35 14:35 WBC 14.3 H RBC 4.82 Hgb 15.7 Hct 44.9 MCV 93.2 MCH 32.7 MCHC 35.0 RDW 15.5 H Plt Count 134 L Neut % (Auto) 51.0 Lymph % (Auto) 32.2 [place] % (Auto) 13.1 Eos % (Auto) 2.7 Baso % (Auto) 1.0 Neut # (Auto) 7300 H Lymph # (Auto) 4600 H [place] # (Auto) 1900 H Eos # (Auto) 400 Baso # (Auto) 100 PT 13.0 H INR 1.1 APTT 37 H Sodium 134 L Potassium 4.0 Chloride 102 Carbon Dioxide 23 BUN 32 H Creatinine 1.48 H Estimated GFR 51 L BUN/Creatinine Ratio 21.6 Glucose 150 H Lactate Calcium 9.0 Magnesium 1.6 Total Bilirubin 1.2 AST 62 H ALT 49 Alkaline Phosphatase 225 H Total Creatine Kinase 38 L Troponin I 0.056 H NT-Pro-B Natriuret Pep 355 H Total Protein 7.8 Albumin 4.1 Globulin 3.7 Albumin/Globulin Ratio 1.1 Triglycerides Cholesterol LDL Cholesterol, Calc HDL Cholesterol Lipase 2608 H Blood Type Antibody Screen 02/19/23 02/19/23 02/19/23 14:35 14:35 18:25 WBC RBC Hgb Hct MCV MCH MCHC RDW Plt Count Neut % (Auto) Lymph % (Auto) [place] % (Auto) Eos % (Auto) Baso % (Auto) Neut # (Auto) Lymph # (Auto) [place] # (Auto) Eos # (Auto) Baso # (Auto) PT INR APTT Sodium Potassium Chloride Carbon Dioxide BUN Creatinine Estimated GFR BUN/Creatinine Ratio Glucose Lactate 2.5 H Calcium Magnesium Total Bilirubin AST ALT Alkaline Phosphatase Total Creatine Kinase Troponin I 0.087 H NT-Pro-B Natriuret Pep Total Protein Albumin Globulin Albumin/Globulin Ratio Triglycerides Cholesterol LDL Cholesterol, Calc HDL Cholesterol Lipase Blood Type O Positive Antibody Screen Negative 02/19/23 02/20/23 02/20/23 18:40 05:36 05:36 WBC RBC Hgb Hct MCV MCH MCHC RDW Plt Count Neut % (Auto) Lymph % (Auto) [place] % (Auto) Eos % (Auto) Baso % (Auto) Neut # (Auto) Lymph # (Auto) [place] # (Auto) Eos # (Auto) Baso # (Auto) PT INR APTT Sodium 134 L Potassium 4.4 Chloride 105 Carbon Dioxide 27 BUN 28 H Creatinine 1.28 H Estimated GFR > 60 BUN/Creatinine Ratio 21.9 Glucose 79 L Lactate 1.4 Calcium 8.5 Magnesium Total Bilirubin 1.4 H AST 47 ALT 41 Alkaline Phosphatase 120 D Total Creatine Kinase Troponin I NT-Pro-B Natriuret Pep Total Protein 6.1 L Albumin 2.9 L Globulin 3.2 Albumin/Globulin Ratio 0.9 L Triglycerides 68 Cholesterol 135 L LDL Cholesterol, Calc 83 HDL Cholesterol 38 L Lipase Blood Type Antibody Screen 02/20/23 02/20/23 02/20/23 05:36 05:36 09:30 WBC RBC Hgb Hct MCV MCH MCHC RDW Plt Count Neut % (Auto) Lymph % (Auto) [place] % (Auto) Eos % (Auto) Baso % (Auto) Neut # (Auto) Lymph # (Auto) [place] # (Auto) Eos # (Auto) Baso # (Auto) PT INR APTT Sodium Potassium Chloride Carbon Dioxide BUN Creatinine Estimated GFR BUN/Creatinine Ratio Glucose Lactate Calcium Magnesium Total Bilirubin AST ALT Alkaline Phosphatase Total Creatine Kinase Troponin I 0.150 H* 0.124 H* NT-Pro-B Natriuret Pep Total Protein Albumin Globulin Albumin/Globulin Ratio Triglycerides Cholesterol LDL Cholesterol, Calc HDL Cholesterol Lipase 223 D Blood Type Antibody Screen 02/20/23 13:30 WBC RBC Hgb Hct MCV MCH MCHC RDW Plt Count Neut % (Auto) Lymph % (Auto) [place] % (Auto) Eos % (Auto) Baso % (Auto) Neut # (Auto) Lymph # (Auto) [place] # (Auto) Eos # (Auto) Baso # (Auto) PT INR APTT Sodium Potassium Chloride Carbon Dioxide BUN Creatinine Estimated GFR BUN/Creatinine Ratio Glucose Lactate Calcium Magnesium Total Bilirubin AST ALT Alkaline Phosphatase Total Creatine Kinase Troponin I 0.094 H NT-Pro-B Natriuret Pep Total Protein Albumin Globulin Albumin/Globulin Ratio Triglycerides Cholesterol LDL Cholesterol, Calc HDL Cholesterol Lipase Blood Type Antibody Screen [facility] Medical History Essential hypertension History of kidney stones Hypothyroidism (acquired) Surgical History Status post laparoscopic cholecystectomy Social History household members: spouse Smoking Status: Former smoker alcohol intake: former substance use type: marijuana Discharge Plan Discharge Plan Patient Disposition: Home Discharge orders & Medications Prescriptions: New levothyroxine [Synthroid] 100 mcg Tablet 300 mcg PO 0600 Qty: 30 0RF losartan 25 mg Tablet 25 mg PO DAILY Qty: 30 0RF pantoprazole 40 mg tablet,delayed release (DR/EC) 40 mg PO DAILY Qty: 30 0RF Continued furosemide 40 mg tablet 20 mg PO DAILY levothyroxine 150 mcg tablet 300 mcg PO QAM Vitamin C 100 mg Tablet 100 mg PO DAILY spironolactone 50 mg tablet 50 mg PO DAILY magnesium Tablet 1 tab PO DAILY Adults Multivitamin 18 mg iron-400 mcg-25 mcg Tablet 1 tab PO DAILY vitamin B complex-vit B12 1 tab PO DAILY Discontinued zinc 25 mg Tablet 1 mg PO DAILY Follow up/Referrals: Steve Fermin MD [Primary Care Provider] - Visit Report/Discharge Packet Instructions: Cardiac Troponin, Acute Pancreatitis, Pantoprazole, Losartan Stand Alone Forms: Patient Portal/API, Stroke Signs & Symptoms Discharge Data Primary Care Provider: Steve Fermin Attending Provider: Jorje Valerio Admit Date/Time: 02/19/23 20:28 Discharges patient from system. Discharge Date/Time: 02/20/23 15:40 Quality VTE Deep Vein Thrombosis/Pulmonary Embolism Present on Admission: No
--- NOTE | 2023-03-11 03:57 | ED_ITS ---
HPI - Abdominal Pain General Chief Complaint: Abdominal Pain Stated Complaint: abd pain Time Seen by Provider: 02/19/23 16:32 History of Present Illness HPI narrative: 68 year old male with extensive alcohol history resulting in cirrhosis, reported known gastric varice s, TIPS procedure in [address] [facility] presents by EMS for evaluation of a sudden onset extreme abdominal pain with radiation to his back that brought him to his knees just prior to arrival. He was out eating with his and had this pain, he has had nausea and vomiting as well. He reports that he had endoscopy yesterday which was performed for routine screening. He denies any change in medications. He is had no fever or chills. Denies chest pain or shortness of breath. He was given fentanyl and Zofran prior to his arrival by EMS is feeling better. He is extremely hypertensive. He had a relatively similar episode yesterday which resolved on its own, also after eating Related Data Home Medications Medication Instructions Recorded Confirmed ascorbic acid (vitamin C) 100 mg 100 mg PO DAILY 02/19/23 02/19/23 tablet (Vitamin C) furosemide 40 mg tablet 20 mg PO DAILY 02/19/23 02/19/23 levothyroxine 150 mcg tablet 300 mcg PO QAM 02/19/23 02/19/23 magnesium 1 tab PO DAILY 02/19/23 02/19/23 multivit with minerals-iron 18 1 tab PO DAILY 02/19/23 02/19/23 mg-folic ac 400 mcg-vit K 25 mcg tablet (Adults Multivitamin) spironolactone 50 mg tablet 50 mg PO DAILY 02/19/23 02/19/23 vitamin B complex-vit B12 1 tab PO DAILY 02/19/23 02/19/23 Previous Rx's Medication Instructions Recorded levothyroxine 100 mcg tablet 300 mcg PO 0600 #30 tabs 02/20/23 (Synthroid) losartan 25 mg tablet 25 mg PO DAILY #30 tabs 02/20/23 pantoprazole 40 mg tablet,delayed 40 mg PO DAILY #30 tabs 02/20/23 release Allergies Allergy/AdvReac Type Severity Reaction Status Date / Time acetaminophen [From Tylenol] Allergy Intermediate Verified 12/17/19 07:21 Review of Systems Eyes Eyes: Denies loss of vision Neurologic Neurologic: Reports system reviewed and no additional complaints, except as documented and Denies loss of vision Patient History Medical History Essential hypertension History of kidney stones Hypothyroidism (acquired) Surgical History Status post laparoscopic cholecystectomy Social History household members: spouse Smoking Status: Former smoker alcohol intake: former substance use type: marijuana Smoking Status: Former smoker alcohol intake frequency: holidays/special occasions only Substance Use Type: marijuana Exam Narrative Exam Narrative: GENERAL: [68] year old patient appears stated age. Well-developed patient, in mild distress. Complaining of abdominal pain HEAD: Atraumatic. Normocephalic. EYES: Pupils equal round and reactive. Extraocular motions intact. No scleral icterus. No injection or drainage. ENT: Nose without bleeding, purulent drainage. Throat without erythema, tonsillar hypertrophy or exudate. Airway patent. NECK: Trachea midline. Non tender CARDIOVASCULAR: Regular rate and rhythm without murmurs, gallops, or rubs. RESPIRATORY: Clear to auscultation. Breath sounds equal bilaterally. No wheezes, rales, or rhonchi. GASTROINTESTINAL: Abdomen soft, non-tender, nondistended. EXTREMITIES: No edema or joint tenderness. BACK: Nontender without deformity or crepitance. No flank tenderness. NEURO: AOx3. SKIN: No rash or erythema of visible areas Initial Vital Signs Initial Vital Signs: Vital Signs Temperature 97.6 F 02/19/23 16:29 Pulse Rate 78 02/19/23 16:29 Respiratory Rate 16 02/19/23 16:29 Blood Pressure 232/107 H 02/19/23 16:29 Pulse Oximetry 97 02/19/23 16:29 Oxygen Delivery Method Room Air 02/19/23 16:29 Course Orders Ordered: Discontinued Medications Hydralazine HCl (Hydralazine 25 Mg Tablet) 25 mg PO Q4HR PRN PRN Reason: SBP >160 Sodium Chloride (Normal Saline 0.9%) 1,000 mls @ 125 mls/hr IV CONT TJ Last Admin: 02/20/23 05:12 Dose: 125 mls/hr Documented By: Infusion: 02/20/23 05:12 Dose: 0 mls/hr Documented By: Admin: 02/19/23 21:45 Dose: 125 mls/hr Documented By: BRONWYN Levothyroxine Sodium (Levothyroxine 50 Mcg Tablet) 50 mcg PO 0600 [facility] Last Admin: 02/20/23 05:08 Dose: 50 mcg Documented By: BRONWYN Levothyroxine Sodium (Levothyroxine 100 Mcg Tablet) 300 mcg PO 0600 [facility] Last Admin: 02/20/23 06:07 Dose: 250 mcg Documented By: BRONWYN Losartan Potassium (Losartan 25 Mg Tablet) 25 mg PO DAILY [facility] Last Admin: 02/20/23 09:28 Dose: Not Given Documented By: MAT Morphine Sulfate (Morphine 4 Mg/Ml Inj) 4 mg IV Q2HR [facility] Last Admin: 02/19/23 22:49 Dose: 4 mg Documented By: BRONWYN Morphine Sulfate (Morphine 4 Mg/Ml Inj) 4 mg IV Q2HR PRN PRN Reason: Abdominal pain Multivitamins (Multivitamin 1 Tablet) 1 tab PO DAILY [facility] Last Admin: 02/20/23 09:24 Dose: 1 tab Documented By: MAT Ondansetron HCl (Ondansetron 4 Mg/2 Ml Inj) 4 mg IV Q4HR PRN PRN Reason: Nausea And Vomiting Oxycodone HCl (Oxycodone Ir 5 Mg Tablet) 5 mg PO Q4H PRN PRN Reason: Pain, Moderate (4-6) Pantoprazole Sodium (Pantoprazole 40 Mg Vial) 40 mg IV NOW ONE Stop: 02/19/23 16:33 Last Admin: 02/19/23 16:40 Dose: 40 mg Documented By: ARTI Pantoprazole Sodium (Pantoprazole 40 Mg Vial) 40 mg IV BID [facility] Last Admin: 02/20/23 09:24 Dose: 40 mg Documented By: Admin: 02/19/23 22:43 Dose: Not Given Documented By: BRONWYN MDM - Abdominal Pain Lab Data 02/19/23 14:35 02/20/23 05:36 Labs: Lab Results 02/19/23 02/19/23 02/19/23 Range/Units 14:35 14:35 14:35 WBC 14.3 H (4.5-11.0) X10^3/uL RBC 4.82 (4.5-5.9) X10^6/uL Hgb 15.7 (13.5-17.5) g/dL Hct 44.9 (41-53) % MCV 93.2 (80-100) fL MCH 32.7 (26-34) PG MCHC 35.0 (30-36) % RDW 15.5 H (11.6-14.8) % Plt Count 134 L (150-400) X10^3/uL Neut % (Auto) 51.0 (50-75) % Lymph % (Auto) 32.2 (25-40) % [place] % (Auto) 13.1 (3-14) % Eos % (Auto) 2.7 (2-4) % Baso % (Auto) 1.0 (0-2) % Neut # (Auto) 7300 H (3576-2872) /uL Lymph # (Auto) 4600 H (2704-5139) /uL [place] # (Auto) 1900 H (0-900) /uL Eos # (Auto) 400 (0-450) /uL Baso # (Auto) 100 (0-100) /uL PT 13.0 H (10.1-12.7) SECONDS INR 1.1 (0.9-1.3) APTT 37 H (26-36) SECONDS Sodium 134 L (137-145) mmol/L Potassium 4.0 (3.4-5.1) mmol/L Chloride 102 (98-107) mmol/L Carbon Dioxide 23 (22-32) mmol/L BUN 32 H (9-20) mg/dL Creatinine 1.48 H (0.66-1.25) mg/dL Estimated GFR 51 L (>60) mL/min BUN/Creatinine Ratio 21.6 (6-22) Glucose 150 H (80-110) mg/dL Lactate (0.7-2.1) mmol/L Calcium 9.0 (8.4-10.2) mg/dL Magnesium 1.6 (1.6-2.3) mg/dL Total Bilirubin 1.2 (0.2-1.3) mg/dL AST 62 H (17-59) IU/L ALT 49 (<50) IU/L Alkaline Phosphatase 225 H (38-126) U/L Total Creatine Kinase 38 L (55-170) U/L Troponin I 0.056 H (0.01-0.034) ng/mL NT-Pro-B Natriuret Pep 355 H (<125) pg/mL Total Protein 7.8 (6.3-8.2) g/dL Albumin 4.1 (3.5-5.0) g/dL Globulin 3.7 (1.7-4.1) g/dL Albumin/Globulin Ratio 1.1 (1.0-2.8) Lipase 2608 H (23-300) U/L Blood Type Antibody Screen 02/19/23 02/19/23 02/19/23 Range/Units 14:35 14:35 18:25 WBC (4.5-11.0) X10^3/uL RBC (4.5-5.9) X10^6/uL Hgb (13.5-17.5) g/dL Hct (41-53) % MCV (80-100) fL MCH (26-34) PG MCHC (30-36) % RDW (11.6-14.8) % Plt Count (150-400) X10^3/uL Neut % (Auto) (50-75) % Lymph % (Auto) (25-40) % [place] % (Auto) (3-14) % Eos % (Auto) (2-4) % Baso % (Auto) (0-2) % Neut # (Auto) (8905-8456) /uL Lymph # (Auto) (0478-3842) /uL [place] # (Auto) (0-900) /uL Eos # (Auto) (0-450) /uL Baso # (Auto) (0-100) /uL PT (10.1-12.7) SECONDS INR (0.9-1.3) APTT (26-36) SECONDS Sodium (137-145) mmol/L Potassium (3.4-5.1) mmol/L Chloride (98-107) mmol/L Carbon Dioxide (22-32) mmol/L BUN (9-20) mg/dL Creatinine (0.66-1.25) mg/dL Estimated GFR (>60) mL/min BUN/Creatinine Ratio (6-22) Glucose (80-110) mg/dL Lactate 2.5 H (0.7-2.1) mmol/L Calcium (8.4-10.2) mg/dL Magnesium (1.6-2.3) mg/dL Total Bilirubin (0.2-1.3) mg/dL AST (17-59) IU/L ALT (<50) IU/L Alkaline Phosphatase (38-126) U/L Total Creatine Kinase (55-170) U/L Troponin I 0.087 H (0.01-0.034) ng/mL NT-Pro-B Natriuret Pep (<125) pg/mL Total Protein (6.3-8.2) g/dL Albumin (3.5-5.0) g/dL Globulin (1.7-4.1) g/dL Albumin/Globulin Ratio (1.0-2.8) Lipase (23-300) U/L Blood Type O Positive Antibody Screen Negative 02/19/23 Range/Units 18:40 WBC (4.5-11.0) X10^3/uL RBC (4.5-5.9) X10^6/uL Hgb (13.5-17.5) g/dL Hct (41-53) % MCV (80-100) fL MCH (26-34) PG MCHC (30-36) % RDW (11.6-14.8) % Plt Count (150-400) X10^3/uL Neut % (Auto) (50-75) % Lymph % (Auto) (25-40) % [place] % (Auto) (3-14) % Eos % (Auto) (2-4) % Baso % (Auto) (0-2) % Neut # (Auto) (3004-3506) /uL Lymph # (Auto) (3037-2011) /uL [place] # (Auto) (0-900) /uL Eos # (Auto) (0-450) /uL Baso # (Auto) (0-100) /uL PT (10.1-12.7) SECONDS INR (0.9-1.3) APTT (26-36) SECONDS Sodium (137-145) mmol/L Potassium (3.4-5.1) mmol/L Chloride (98-107) mmol/L Carbon Dioxide (22-32) mmol/L BUN (9-20) mg/dL Creatinine (0.66-1.25) mg/dL Estimated GFR (>60) mL/min BUN/Creatinine Ratio (6-22) Glucose (80-110) mg/dL Lactate 1.4 (0.7-2.1) mmol/L Calcium (8.4-10.2) mg/dL Magnesium (1.6-2.3) mg/dL Total Bilirubin (0.2-1.3) mg/dL AST (17-59) IU/L ALT (<50) IU/L Alkaline Phosphatase (38-126) U/L Total Creatine Kinase (55-170) U/L Troponin I (0.01-0.034) ng/mL NT-Pro-B Natriuret Pep (<125) pg/mL Total Protein (6.3-8.2) g/dL Albumin (3.5-5.0) g/dL Globulin (1.7-4.1) g/dL Albumin/Globulin Ratio (1.0-2.8) Lipase (23-300) U/L Blood Type Antibody Screen MDM Narrative Medical decision making narrative: CC: 68 year old male with severe epigastric pain with radiation to his back Complicating co-morbidities: Age, hypertension, prior liver history status post TIPS, recent endoscopy Data collected from: Patient Differential considered, but not limited to: Pancreatitis versus gallbladder disease versus dissection versus other Exam documented above, pertinent findings include: Severe epigastric pain on exam, heart rate regular, lungs clear Lab Test results independently reviewed as above. Pertinent findings: Leukocytosis without true left shift, no signs of anemia, creatinine 1.48, chief FR 51, lactate 2.5, troponin 0.056, lipase 2608 Independently reviewed EKG as above Imaging studies independently reviewed: Consultations: hospitalist happy to accept Treatments: fluids, pain control Re-evaluations: improved Discussion: Patient with extreme abdominal pain found to have pancreatitis and requires hospitalization for fluids, pain control and antiemetics Discharge Plan Departure Patient Disposition: Admitted As Inpatient Clinical Impression: Pancreatitis, Ground glass opacity present on imaging of lung, Hepatic cirrhosis Admit Date/Time: 02/19/23 20:28 Admit Provider: Jorje Valerio
== END 2023-02-20 15:40 | disposition home or self-care (01) ==
LOC: ED 20:24 → AC 02-20 08:31
PROVIDERS: Emergency Medicine; Internal Medicine; Neuromusculoskeletal Medicine, Sports Medicine; Admitting Provider Internal Medicine; Emergency Provider Emergency Medicine; PCP Internal Medicine; Referring Provider Emergency Medicine; Visit Provider Internal Medicine
DX: K85.80 Other acute pancreatitis without necrosis or infection (principal); R77.8 Other specified abnormalities of plasma proteins; I10 Essential (primary) hypertension; R91.8 Other nonspecific abnormal finding of lung field; E03.9 Hypothyroidism, unspecified; K74.69 Other cirrhosis of liver; I16.0 Hypertensive urgency
CPT/HCPCS: 36415; 71275; 74174; 80053; 80061; 82550; 83605; 83690; 83735; 83880; 84484; 85025; 85610; 85730; 86850; 86900; 86901; 87040; 93005; 93010; 96361; 96374; 96375; 96376; 99284; 99291; 99292; G0378; C9113; J2270; Q9967

== ENCOUNTER 2024-11-29 01:32 | Emergency (ER) | payer MEDICARE, SELFPAY ==
[2023-02-19 20:32] VITALS: BMI 36.9
[2024-11-29] VITALS (36 sets, daily range): BP systolic 119–174; BP diastolic 58–82; PULSE 65–100; RESP 13–24; TEMP 37; O2SAT 91–98; BMI 40.3
--- NOTE | 2024-11-29 02:14 | ED_ITS ---
HPI - General Adult <Samm Azevedo MD - Last Filed: 11/30/24 05:40> General Chief complaint: Abdominal Pain Stated complaint: blood in stool severe pain abd Time Seen by Provider: 11/29/24 01:35 Source: patient Mode of arrival: Family Vehicle History of Present Illness HPI narrative: 69-year-old male with history of alcoholic liver disease, cirrhosis, ascites, last drink 4 years ago, status post TIPS procedure [facility] for years ago, with revision TIPS procedure 11/20/24 as an outpatient at [facility], this last week was admitted for 3 days [facility] for GI bleeding evaluation, no clear source of the bleeding per understanding of the patient/, discharged home, then went back to [facility] with melanotic stool ED evaluation, and was discharged again. Complains of ongoing melanotic stool abdominal cramping, some BRB and purple clots, not mixed with stool. No nausea or vomiting. No fevers or chills. Related Data Home Medications Medication Instructions Recorded Confirmed ascorbic acid (vitamin C) 100 mg 100 mg PO DAILY 02/19/23 02/19/23 tablet (Vitamin C) furosemide 40 mg tablet 20 mg PO DAILY 02/19/23 02/19/23 levothyroxine 150 mcg tablet 300 mcg PO QAM 02/19/23 02/19/23 magnesium 1 tab PO DAILY 02/19/23 02/19/23 multivit with minerals-iron 18 1 tab PO DAILY 02/19/23 02/19/23 mg-folic ac 400 mcg-vit K 25 mcg tablet (Adults Multivitamin) spironolactone 50 mg tablet 50 mg PO DAILY 02/19/23 02/19/23 vitamin B complex-vit B12 1 tab PO DAILY 02/19/23 02/19/23 Previous Rx's Medication Instructions Recorded levothyroxine 100 mcg tablet 300 mcg (3 x 100 mcg) PO 0600 #30 02/20/23 (Synthroid) tabs losartan 25 mg tablet 25 mg PO DAILY #30 tabs 02/20/23 pantoprazole 40 mg tablet,delayed 40 mg PO DAILY #30 tabs 02/20/23 release Allergies Allergy/AdvReac Type Severity Reaction Status Date / Time acetaminophen [From Tylenol] Allergy Intermediate Verified 12/17/19 07:21 Patient History <Samm Azevedo MD - Last Filed: 11/30/24 05:40> Medical History Essential hypertension History of kidney stones Hypothyroidism (acquired) Surgical History Status post laparoscopic cholecystectomy Social History household members: spouse Smoking Status: Former smoker alcohol intake: former substance use type: marijuana Smoking Status: Former smoker alcohol intake frequency: holidays/special occasions only Exam <Samm Azevedo MD - Last Filed: 11/30/24 05:40> Narrative Exam Narrative: GENERAL: Well-developed patient, in mild distress. HEAD: Atraumatic. Normocephalic. EYES: Pupils equal round and reactive. Extraocular motions intact. No scleral icterus. No injection or drainage. ENT: Nose without bleeding, purulent drainage. Throat without erythema, tonsillar hypertrophy or exudate. Airway patent. NECK: Trachea midline. Non tender CARDIOVASCULAR: Regular rate and rhythm without murmurs, gallops, or rubs. RESPIRATORY: Clear to auscultation. Breath sounds equal bilaterally. No wheezes, rales, or rhonchi. GASTROINTESTINAL: Abdomen soft, non-tender, nondistended. No obvious central tympani, nondistended. EXTREMITIES: No edema or joint tenderness. BACK: Nontender without deformity or crepitance. No flank tenderness. NEURO: AOx3. Motor functions grossly nonfocal SKIN: No rash or erythema of visible areas Initial Vital Signs Initial Vital Signs: Vital Signs Temperature 98.6 F 11/29/24 01:37 Respiratory Rate 18 11/29/24 01:37 Blood Pressure 145/67 H 11/29/24 01:37 Pulse Oximetry 95 11/29/24 01:37 Oxygen Delivery Method Room Air 11/29/24 01:37 <Dana Sampson DO - Last Filed: 11/29/24 18:43> Initial Vital Signs Initial Vital Signs: Vital Signs Temperature 98.6 F 11/29/24 01:37 Respiratory Rate 18 11/29/24 01:37 Blood Pressure 145/67 H 11/29/24 01:37 Pulse Oximetry 95 11/29/24 01:37 Oxygen Delivery Method Room Air 11/29/24 01:37 Course <Samm Azevedo MD - Last Filed: 11/30/24 05:40> Orders Ordered: Discontinued Medications Hydromorphone HCl (Hydromorphone 0.5 Mg Inj) 0.5 mg IV NOW ONE Stop: 11/29/24 04:42 Last Admin: 11/29/24 04:50 Dose: 0.5 mg Documented By: BEATA Hydromorphone HCl (Hydromorphone 0.5 Mg Inj) 0.5 mg IV NOW ONE Stop: 11/29/24 16:49 Last Admin: 11/29/24 16:52 Dose: 0.5 mg Documented By: MARLEE Octreotide Acetate 500 mcg/ (Sodium Chloride) 101 mls @ 10.1 mls/hr IV CONT TJ; Protocol Last Infusion: 11/29/24 13:51 Dose: Infused Documented By: Admin: 11/29/24 04:29 Dose: 50 mcg/hr, 10.1 mls/hr Documented By: BEATA Octreotide Acetate (Octreotide 100 Mcg/Ml Vial) 50 mcg IV NOW ONE Stop: 11/29/24 04:07 Last Admin: 11/29/24 04:29 Dose: 50 mcg Documented By: BEATA Ondansetron HCl (Ondansetron 4 Mg/2 Ml Inj) 4 mg IV NOW ONE Stop: 11/29/24 04:42 Last Admin: 11/29/24 04:50 Dose: 4 mg Documented By: BEATA Ondansetron HCl (Ondansetron 4 Mg/2 Ml Inj) 4 mg IV NOW ONE Stop: 11/29/24 16:50 Last Admin: 11/29/24 16:52 Dose: 4 mg Documented By: MARLEE Pantoprazole Sodium (Pantoprazole 40 Mg Vial) 80 mg IV NOW ONE Stop: 11/29/24 02:18 Last Admin: 11/29/24 02:42 Dose: 80 mg Documented By: BEATA Vital Signs Vital signs: Vital Signs - 8 hr 11/29/24 11:00 11/29/24 11:00 11/29/24 11:26 Pulse Rate 92 H 65 Respiratory Rate 13 Blood Pressure 170/75 H 123/82 Pulse Oximetry 96 98 11/29/24 11:30 11/29/24 11:30 11/29/24 12:00 Pulse Rate 88 99 H Respiratory Rate 16 21 Blood Pressure 154/70 H Pulse Oximetry 95 96 11/29/24 12:01 11/29/24 12:12 11/29/24 12:12 Pulse Rate 98 H 93 H Respiratory Rate 18 24 Blood Pressure 151/64 H Pulse Oximetry 96 95 11/29/24 12:30 11/29/24 12:31 11/29/24 12:31 Pulse Rate 91 H 91 H Respiratory Rate 18 21 Blood Pressure 144/67 H Pulse Oximetry 96 97 11/29/24 13:00 11/29/24 13:00 Pulse Rate 88 Respiratory Rate 18 Blood Pressure 155/74 H Pulse Oximetry 97 <Dana Sampson, DO - Last Filed: 11/29/24 18:43> Orders Ordered: Discontinued Medications Hydromorphone HCl (Hydromorphone 0.5 Mg Inj) 0.5 mg IV NOW ONE Stop: 11/29/24 04:42 Last Admin: 11/29/24 04:50 Dose: 0.5 mg Documented By: BEATA Hydromorphone HCl (Hydromorphone 0.5 Mg Inj) 0.5 mg IV NOW ONE Stop: 11/29/24 16:49 Last Admin: 11/29/24 16:52 Dose: 0.5 mg Documented By: MARLEE Octreotide Acetate 500 mcg/ (Sodium Chloride) 101 mls @ 10.1 mls/hr IV CONT TJ; Protocol Last Infusion: 11/29/24 13:51 Dose: Infused Documented By: Admin: 11/29/24 04:29 Dose: 50 mcg/hr, 10.1 mls/hr Documented By: BEATA Octreotide Acetate (Octreotide 100 Mcg/Ml Vial) 50 mcg IV NOW ONE Stop: 11/29/24 04:07 Last Admin: 11/29/24 04:29 Dose: 50 mcg Documented By: BEATA Ondansetron HCl (Ondansetron 4 Mg/2 Ml Inj) 4 mg IV NOW ONE Stop: 11/29/24 04:42 Last Admin: 11/29/24 04:50 Dose: 4 mg Documented By: BETAA Ondansetron HCl (Ondansetron 4 Mg/2 Ml Inj) 4 mg IV NOW ONE Stop: 11/29/24 16:50 Last Admin: 11/29/24 16:52 Dose: 4 mg Documented By: MARLEE Pantoprazole Sodium (Pantoprazole 40 Mg Vial) 80 mg IV NOW ONE Stop: 11/29/24 02:18 Last Admin: 11/29/24 02:42 Dose: 80 mg Documented By: Surjit Vital Signs Vital signs: Vital Signs - 8 hr 11/29/24 11:00 11/29/24 11:00 11/29/24 11:26 Pulse Rate 92 H 65 Respiratory Rate 13 Blood Pressure 170/75 H 123/82 Pulse Oximetry 96 98 11/29/24 11:30 11/29/24 11:30 11/29/24 12:00 Pulse Rate 88 99 H Respiratory Rate 16 21 Blood Pressure 154/70 H Pulse Oximetry 95 96 11/29/24 12:01 11/29/24 12:12 11/29/24 12:12 Pulse Rate 98 H 93 H Respiratory Rate 18 24 Blood Pressure 151/64 H Pulse Oximetry 96 95 11/29/24 12:30 11/29/24 12:31 11/29/24 12:31 Pulse Rate 91 H 91 H Respiratory Rate 18 21 Blood Pressure 144/67 H Pulse Oximetry 96 97 11/29/24 13:00 11/29/24 13:00 Pulse Rate 88 Respiratory Rate 18 Blood Pressure 155/74 H Pulse Oximetry 97 Medical Decision Making <Samm Azevedo MD - Last Filed: 11/30/24 05:40> Lab Data Lab results reviewed: Yes I reviewed the patient's lab results. Lab results narrative: White blood cell count 38327, hemoglobin 9.3, platelets 140,000. Glucose 110. BUN 26 with creatinine 1.54. Serum CO2 30. Sodium 132, potassium 4.8. Alkaline phosphatase and AST slight elevations, normal ALT and T bili. INR 1.3. Lipase 202. GI panel and negative, including C diff toxin. Urine dip negative. 11/29/24 14:50 11/29/24 02:18 Labs: Lab Results 11/29/24 11/29/24 11/29/24 Range/Units 02:00 02:18 02:47 WBC 11.7 H (4.5-11.0) X10^3/uL RBC 2.90 L (4.5-5.9) X10^6/uL Hgb 9.3 L (13.5-17.5) g/dL Hct 27.2 L (41-53) % MCV 93.8 (80-100) fL MCH 32.2 (26-34) PG MCHC 34.4 (30-36) % RDW 15.5 H (11.6-14.8) % Plt Count 140 L (150-400) X10^3/uL Neut % (Auto) 64.6 (50-75) % Lymph % (Auto) 17.9 L (25-40) % [place] % (Auto) 14.8 H (3-14) % Eos % (Auto) 2.2 (2-4) % Baso % (Auto) 0.5 (0-2) % Neut # (Auto) 7500 H (2798-4166) /uL Lymph # (Auto) 2100 (2105-1378) /uL [place] # (Auto) 1700 H (0-900) /uL Eos # (Auto) 300 (0-450) /uL Baso # (Auto) 100 (0-100) /uL PT 14.2 H (9.4-12.5) SECONDS INR 1.3 (0.9-1.3) Sodium 132 L (137-145) mmol/L Potassium 4.8 (3.4-5.1) mmol/L Chloride 100 (98-107) mmol/L Carbon Dioxide 30 (22-32) mmol/L BUN 26 H (9-20) mg/dL Creatinine 1.54 H (0.66-1.25) mg/dL Estimated GFR 49 L (>60) mL/min BUN/Creatinine Ratio 16.9 (6-22) Glucose 110 H (70-99) mg/dL Calcium 7.9 L (8.4-10.2) mg/dL Total Bilirubin 0.8 (0.2-1.3) mg/dL AST 69 H (17-59) IU/L ALT 35 (<50) IU/L Alkaline Phosphatase 241 H (38-126) U/L Total Protein 5.8 L (6.3-8.2) g/dL Albumin 2.8 L (3.5-5.0) g/dL Globulin 3.0 (1.7-4.1) g/dL Albumin/Globulin Ratio 0.9 L (1.0-2.8) Lipase 202 (23-300) U/L Urine RBC (0-5/HPF) Urine WBC (0-5/HPF) Ur Squamous Epith Cells (0-5/HPF) Urine Bacteria (None) Hyaline Casts (None) Ur Culture Indicated? Vol Urine Centrifuged Stl C. cayetanensis PCR Not detected (Not Detect) Stool Rotavirus (PCR) Not detected (Not Detect) Stool Adenovirus (PCR) Not detected (Not Detect) Stool Astrovirus (PCR) Not detected (Not Detect) Stool Cryptosporidium PCR Not detected (Not Detect) Stl E.coli Shiga Tox PCR Not detected (Not Detect) St Sh/Enteroin Ecoli PCR Not detected (Not Detect) Stl Enterotoxigenic E PCR Not detected (Not Detect) Stool EPEC (PCR) Not detected (Not Detect) Stl E. histolytica PCR Not detected (Not Detect) Stool Giardia Lamblia PCR Not detected (Not Detect) Stool Sapovirus (PCR) Not detected (Not Detect) Stl P. shigelloides PCR Not detected (Not Detect) St Y.enterocolitica PCR Not detected (Not Detect) Stool Vibrio (PCR) Not detected (Not Detect) Stl Vibrio cholerae PCR Not detected (Not Detect) Stl Enteroaggr Ecoli PCR Not detected (Not Detect) Stl Norovirus GI/GII PCR Not detected (Not Detect) Campylobacter (PCR) Not detected (Not Detect) C. difficile Tox (PCR) Not detected (Not Detect) Salmonella (PCR) Not detected (Not Detect) Blood Type O Positive Antibody Screen Negative 11/29/24 11/29/24 11/29/24 Range/Units 04:12 05:00 14:50 WBC (4.5-11.0) X10^3/uL RBC (4.5-5.9) X10^6/uL Hgb 9.2 L 9.2 L (13.5-17.5) g/dL Hct 27.0 L 27.2 L (41-53) % MCV (80-100) fL MCH (26-34) PG MCHC (30-36) % RDW (11.6-14.8) % Plt Count (150-400) X10^3/uL Neut % (Auto) (50-75) % Lymph % (Auto) (25-40) % [place] % (Auto) (3-14) % Eos % (Auto) (2-4) % Baso % (Auto) (0-2) % Neut # (Auto) (9020-5190) /uL Lymph # (Auto) (8951-1531) /uL [place] # (Auto) (0-900) /uL Eos # (Auto) (0-450) /uL Baso # (Auto) (0-100) /uL PT (9.4-12.5) SECONDS INR (0.9-1.3) Sodium (137-145) mmol/L Potassium (3.4-5.1) mmol/L Chloride (98-107) mmol/L Carbon Dioxide (22-32) mmol/L BUN (9-20) mg/dL Creatinine (0.66-1.25) mg/dL Estimated GFR (>60) mL/min BUN/Creatinine Ratio (6-22) Glucose (70-99) mg/dL Calcium (8.4-10.2) mg/dL Total Bilirubin (0.2-1.3) mg/dL AST (17-59) IU/L ALT (<50) IU/L Alkaline Phosphatase (38-126) U/L Total Protein (6.3-8.2) g/dL Albumin (3.5-5.0) g/dL Globulin (1.7-4.1) g/dL Albumin/Globulin Ratio (1.0-2.8) Lipase (23-300) U/L Urine RBC None seen (0-5/HPF) Urine WBC None seen (0-5/HPF) Ur Squamous Epith Cells 0-1 /hpf (0-5/HPF) Urine Bacteria None seen (None) Hyaline Casts None seen (None) Ur Culture Indicated? Cult not indicated Vol Urine Centrifuged 10ml (spun) Stl C. cayetanensis PCR (Not Detect) Stool Rotavirus (PCR) (Not Detect) Stool Adenovirus (PCR) (Not Detect) Stool Astrovirus (PCR) (Not Detect) Stool Cryptosporidium PCR (Not Detect) Stl E.coli Shiga Tox PCR (Not Detect) St Sh/Enteroin Ecoli PCR (Not Detect) Stl Enterotoxigenic E PCR (Not Detect) Stool EPEC (PCR) (Not Detect) Stl E. histolytica PCR (Not Detect) Stool Giardia Lamblia PCR (Not Detect) Stool Sapovirus (PCR) (Not Detect) Stl P. shigelloides PCR (Not Detect) St Y.enterocolitica PCR (Not Detect) Stool Vibrio (PCR) (Not Detect) Stl Vibrio cholerae PCR (Not Detect) Stl Enteroaggr Ecoli PCR (Not Detect) Stl Norovirus GI/GII PCR (Not Detect) Campylobacter (PCR) (Not Detect) C. difficile Tox (PCR) (Not Detect) Salmonella (PCR) (Not Detect) Blood Type Antibody Screen Urine Dip Bedside Urine Glucose Negative Bedside Urine Bilirubin - Negative Bedside Urine Ketone - Negative Urine Specific [place] 1.005 Bedside Urine Occult Blood - Negative Bedside Urine pH 7.0 Bedside Urine Protein + 30 Bedside Urine Urobilinogen - Negative Bedside Urine Nitrite - Negative Bedside Urine Leukocytes - Negative Esterase Point of care testing: Urine Dip Bedside Urine Glucose Negative Bedside Urine Bilirubin - Negative Bedside Urine Ketone - Negative Urine Specific [place] 1.005 Bedside Urine Occult Blood - Negative Bedside Urine pH 7.0 Bedside Urine Protein + 30 Bedside Urine Urobilinogen - Negative Bedside Urine Nitrite - Negative Bedside Urine Leukocytes - Negative Esterase ECG Data Interpretation: Normal sinus rhythm with rate of 83, no obvious ST segment elevation or depression changes. First-degree AV block with CA interval 234. QRS 102, QTC 458. MDM Narrative Medical decision making narrative: 69-year-old male with history of alcoholic liver disease, cirrhosis, prior TIPS procedure with revision [facility], recent admission [facility] for GI bleeding workup apparently unrevealing per while inpatient as to the source of any bleeding, discharged home, now having ongoing rectal bleeding, crampy abdominal pain, melana, purple clots, some BRBPR. Afebrile on triage, sirs screen negative. Labs pending. Type and screen pending. NPO. IV Protonix bolus. IV octreotide bolus with infusion. Lab results: White blood cell count 16551, hemoglobin 9.3, platelets 140,000. Glucose 110. BUN 26 with creatinine 1.54. Serum CO2 30. Sodium 132, potassium 4.8. Alkaline phosphatase and AST slight elevations, normal ALT and T bili. INR 1.3. Lipase 202. GI panel and negative, including C diff toxin. Urine dip negative. GFR favorable. CT angio GI bleeding protocol ordered. CT abdomen and pelvis, GI bleed protocol. Findings: Right pleural effusion. No pericardial effusion. Aortic valvuloplasty. The liver has a nodular contour. Post surgical findings of a tips. Postsurgical findings of cholecystectomy. Stent within the common bile duct. Stent appears occluded. The spleen, adrenal glands, and left kidney are normal. Right renal cortical cysts. No mesenteric or retroperitoneal lymphadenopathy. Minimal abdominal ascites. Trace free fluid in the pelvis. The bladder is unremarkable. Colonic diverticulosis. Large volume of stool within the colon. Appendix is not seen. No CT findings of gastrointestinal hemorrhage. There is atherosclerosis of the aorta and branch vessels. No aortic dissection or aneurysm. Impressions: ?No aortic dissection or aneurysm. No CT findings of gastrointestinal hemorrhage. Sequelae of cirrhosis.. See tele radiology report. Repeat hemoglobin pending. Still awaiting records from [facility] recent hospital stay in ED stay. Consider transfer to [facility] system. No GI services available here. Records review. Discharge summary received from [facility]. Date of admission 11/23/24, date of discharge 11/26/24. Patient noted to have alcoholic cirrhosis with ascites, status post TAVR, prior tips and revision prior large volume paracentesis, having black stools, some bright red stool mixed with black, hemoglobin 11.7 had apparently dropped from 16.2, CT showing no acute changes, difficulty assessing tips patency. Hemoglobin trended 10.7-10.1. GI consult, EGD 11/24/2024 with grade 1 esophageal varices, type 2 gastroesophageal varices, 2 tiny pre-pyloric ulcers, portal hypertensive gastropathy, no obvious site of bleeding. Ultrasound abdomen showed functional tips patency. Patient stools turned brown, discharged on oral Bactrim SBP prophylaxis. Patient had mild EVON, improved with holding of Lasix/Aldactone, diuretics resumed on discharge. Right-sided flank pain noted, CT abdomen negative, no kidney stones mentioned. Discharged home with follow up GI advised. 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 Repeat hemoglobin 9.2 similar to previous initial hemoglobin 9.3 noted here, decrease range Hb 11.7 from few days ago at [facility]. 0700, signed out to Dr Sampson. Patient signed out to me by Dr. Azevedo I have seen evaluated patient myself. He has a history of tips, recent hospitalization at [facility] November 23 through the 6 he had EGD paracentesis other procedures hemoglobin at that time was 11.7, today 9.3 with repeat of 9.2. EGD on November 24 showed grade 1 esophageal varices type 2 gastroesophageal varices pre-pyloric ulcers portal hypertensive gastropathy but no obvious site of bleeding Patient is sitting up right in bed reports that he has had some melena stools here in the ED no significant pain he is not dizzy or lightheaded. Vitals remained stable. 0842 Dr. Galindo GI at [facility], no need to transfer seems stable monitor H&H 0925 Dr. Burt, no need to transfer monitor H&H recently had EGD on the no active bleeding. 1100Dr. Kilgore, hospitalist updated on patient's symptoms test results conversations with GI and prior hospitalist difficult to transfer. He understands but reports that we will need higher level of care if he continues to bleed Patient has complicated GI history including cirrhosis tips procedure with ongoing GI bleeding. Recent admission for GI bleed <Dana Sampson, DO - Last Filed: 11/29/24 18:43> Lab Data Labs: Lab Results 11/29/24 11/29/24 11/29/24 Range/Units 02:00 02:18 02:47 WBC 11.7 H (4.5-11.0) X10^3/uL RBC 2.90 L (4.5-5.9) X10^6/uL Hgb 9.3 L (13.5-17.5) g/dL Hct 27.2 L (41-53) % MCV 93.8 (80-100) fL MCH 32.2 (26-34) PG MCHC 34.4 (30-36) % RDW 15.5 H (11.6-14.8) % Plt Count 140 L (150-400) X10^3/uL Neut % (Auto) 64.6 (50-75) % Lymph % (Auto) 17.9 L (25-40) % [place] % (Auto) 14.8 H (3-14) % Eos % (Auto) 2.2 (2-4) % Baso % (Auto) 0.5 (0-2) % Neut # (Auto) 7500 H (6845-3265) /uL Lymph # (Auto) 2100 (9495-8867) /uL [place] # (Auto) 1700 H (0-900) /uL Eos # (Auto) 300 (0-450) /uL Baso # (Auto) 100 (0-100) /uL PT 14.2 H (9.4-12.5) SECONDS INR 1.3 (0.9-1.3) Sodium 132 L (137-145) mmol/L Potassium 4.8 (3.4-5.1) mmol/L Chloride 100 (98-107) mmol/L Carbon Dioxide 30 (22-32) mmol/L BUN 26 H (9-20) mg/dL Creatinine 1.54 H (0.66-1.25) mg/dL Estimated GFR 49 L (>60) mL/min BUN/Creatinine Ratio 16.9 (6-22) Glucose 110 H (70-99) mg/dL Calcium 7.9 L (8.4-10.2) mg/dL Total Bilirubin 0.8 (0.2-1.3) mg/dL AST 69 H (17-59) IU/L ALT 35 (<50) IU/L Alkaline Phosphatase 241 H (38-126) U/L Total Protein 5.8 L (6.3-8.2) g/dL Albumin 2.8 L (3.5-5.0) g/dL Globulin 3.0 (1.7-4.1) g/dL Albumin/Globulin Ratio 0.9 L (1.0-2.8) Lipase 202 (23-300) U/L Urine RBC (0-5/HPF) Urine WBC (0-5/HPF) Ur Squamous Epith Cells (0-5/HPF) Urine Bacteria (None) Hyaline Casts (None) Ur Culture Indicated? Vol Urine Centrifuged Stl C. cayetanensis PCR Not detected (Not Detect) Stool Rotavirus (PCR) Not detected (Not Detect) Stool Adenovirus (PCR) Not detected (Not Detect) Stool Astrovirus (PCR) Not detected (Not Detect) Stool Cryptosporidium PCR Not detected (Not Detect) Stl E.coli Shiga Tox PCR Not detected (Not Detect) St Sh/Enteroin Ecoli PCR Not detected (Not Detect) Stl Enterotoxigenic E PCR Not detected (Not Detect) Stool EPEC (PCR) Not detected (Not Detect) Stl E. histolytica PCR Not detected (Not Detect) Stool Giardia Lamblia PCR Not detected (Not Detect) Stool Sapovirus (PCR) Not detected (Not Detect) Stl P. shigelloides PCR Not detected (Not Detect) St Y.enterocolitica PCR Not detected (Not Detect) Stool Vibrio (PCR) Not detected (Not Detect) Stl Vibrio cholerae PCR Not detected (Not Detect) Stl Enteroaggr Ecoli PCR Not detected (Not Detect) Stl Norovirus GI/GII PCR Not detected (Not Detect) Campylobacter (PCR) Not detected (Not Detect) C. difficile Tox (PCR) Not detected (Not Detect) Salmonella (PCR) Not detected (Not Detect) Blood Type O Positive Antibody Screen Negative 11/29/24 11/29/24 11/29/24 Range/Units 04:12 05:00 14:50 WBC (4.5-11.0) X10^3/uL RBC (4.5-5.9) X10^6/uL Hgb 9.2 L 9.2 L (13.5-17.5) g/dL Hct 27.0 L 27.2 L (41-53) % MCV (80-100) fL MCH (26-34) PG MCHC (30-36) % RDW (11.6-14.8) % Plt Count (150-400) X10^3/uL Neut % (Auto) (50-75) % Lymph % (Auto) (25-40) % [place] % (Auto) (3-14) % Eos % (Auto) (2-4) % Baso % (Auto) (0-2) % Neut # (Auto) (4607-7075) /uL Lymph # (Auto) (3587-2046) /uL [place] # (Auto) (0-900) /uL Eos # (Auto) (0-450) /uL Baso # (Auto) (0-100) /uL PT (9.4-12.5) SECONDS INR (0.9-1.3) Sodium (137-145) mmol/L Potassium (3.4-5.1) mmol/L Chloride (98-107) mmol/L Carbon Dioxide (22-32) mmol/L BUN (9-20) mg/dL Creatinine (0.66-1.25) mg/dL Estimated GFR (>60) mL/min BUN/Creatinine Ratio (6-22) Glucose (70-99) mg/dL Calcium (8.4-10.2) mg/dL Total Bilirubin (0.2-1.3) mg/dL AST (17-59) IU/L ALT (<50) IU/L Alkaline Phosphatase (38-126) U/L Total Protein (6.3-8.2) g/dL Albumin (3.5-5.0) g/dL Globulin (1.7-4.1) g/dL Albumin/Globulin Ratio (1.0-2.8) Lipase (23-300) U/L Urine RBC None seen (0-5/HPF) Urine WBC None seen (0-5/HPF) Ur Squamous Epith Cells 0-1 /hpf (0-5/HPF) Urine Bacteria None seen (None) Hyaline Casts None seen (None) Ur Culture Indicated? Cult not indicated Vol Urine Centrifuged 10ml (spun) Stl C. cayetanensis PCR (Not Detect) Stool Rotavirus (PCR) (Not Detect) Stool Adenovirus (PCR) (Not Detect) Stool Astrovirus (PCR) (Not Detect) Stool Cryptosporidium PCR (Not Detect) Stl E.coli Shiga Tox PCR (Not Detect) St Sh/Enteroin Ecoli PCR (Not Detect) Stl Enterotoxigenic E PCR (Not Detect) Stool EPEC (PCR) (Not Detect) Stl E. histolytica PCR (Not Detect) Stool Giardia Lamblia PCR (Not Detect) Stool Sapovirus (PCR) (Not Detect) Stl P. shigelloides PCR (Not Detect) St Y.enterocolitica PCR (Not Detect) Stool Vibrio (PCR) (Not Detect) Stl Vibrio cholerae PCR (Not Detect) Stl Enteroaggr Ecoli PCR (Not Detect) Stl Norovirus GI/GII PCR (Not Detect) Campylobacter (PCR) (Not Detect) C. difficile Tox (PCR) (Not Detect) Salmonella (PCR) (Not Detect) Blood Type Antibody Screen Urine Dip Bedside Urine Glucose Negative Bedside Urine Bilirubin - Negative Bedside Urine Ketone - Negative Urine Specific [place] 1.005 Bedside Urine Occult Blood - Negative Bedside Urine pH 7.0 Bedside Urine Protein + 30 Bedside Urine Urobilinogen - Negative Bedside Urine Nitrite - Negative Bedside Urine Leukocytes - Negative Esterase Point of care testing: Urine Dip Bedside Urine Glucose Negative Bedside Urine Bilirubin - Negative Bedside Urine Ketone - Negative Urine Specific [place] 1.005 Bedside Urine Occult Blood - Negative Bedside Urine pH 7.0 Bedside Urine Protein + 30 Bedside Urine Urobilinogen - Negative Bedside Urine Nitrite - Negative Bedside Urine Leukocytes - Negative Esterase MDM Narrative Medical decision making narrative: 69-year-old male with history of alcoholic liver disease, cirrhosis, prior TIPS procedure with revision [facility], recent admission [facility] for GI bleeding workup apparently unrevealing per while inpatient as to the source of any bleeding, discharged home, now having ongoing rectal bleeding, crampy abdominal pain, melana, purple clots, some BRBPR. Afebrile on triage, sirs screen negative. Labs pending. Type and screen pending. NPO. IV Protonix bolus. IV octreotide bolus with infusion. Lab results: White blood cell count 24065, hemoglobin 9.3, platelets 140,000. Glucose 110. BUN 26 with creatinine 1.54. Serum CO2 30. Sodium 132, potassium 4.8. Alkaline phosphatase and AST slight elevations, normal ALT and T bili. INR 1.3. Lipase 202. GI panel and negative, including C diff toxin. Urine dip negative. GFR favorable. CT angio GI bleeding protocol ordered. CT abdomen and pelvis, GI bleed protocol. Findings: Right pleural effusion. No pericardial effusion. Aortic valvuloplasty. The liver has a nodular contour. Post surgical findings of a tips. Postsurgical findings of cholecystectomy. Stent within the common bile duct. Stent appears occluded. The spleen, adrenal glands, and left kidney are normal. Right renal cortical cysts. No mesenteric or retroperitoneal lymphadenopathy. Minimal abdominal ascites. Trace free fluid in the pelvis. The bladder is unremarkable. Colonic diverticulosis. Large volume of stool within the colon. Appendix is not seen. No CT findings of gastrointestinal hemorrhage. There is atherosclerosis of the aorta and branch vessels. No aortic dissection or aneurysm. Impressions: ?No aortic dissection or aneurysm. No CT findings of gastrointestinal hemorrhage. Sequelae of cirrhosis.. See tele radiology report. Repeat hemoglobin pending. Still awaiting records from [facility] recent hospital stay in ED stay. Consider transfer to [facility]. No GI services available here. Records review. Discharge summary received from [facility]. Date of admission 11/23/24, date of discharge 11/26/24. Patient noted to have alcoholic cirrhosis with ascites, status post TAVR, prior tips and revision prior large volume paracentesis, having black stools, some bright red stool mixed with black, hemoglobin 11.7 had apparently dropped from 16.2, CT showing no acute changes, difficulty assessing tips patency. Hemoglobin trended 10.7-10.1. GI consult, EGD 11/24/2024 with grade 1 esophageal varices, type 2 gastroesophageal varices, 2 tiny pre-pyloric ulcers, portal hypertensive gastropathy, no obvious site of bleeding. Ultrasound abdomen showed functional tips patency. Patient stools turned brown, discharged on oral Bactrim SBP prophylaxis. Patient had mild EVON, improved with holding of Lasix/Aldactone, diuretics resumed on discharge. Right-sided flank pain noted, CT abdomen negative, no kidney stones mentioned. Discharged home with follow up GI advised. 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 Repeat hemoglobin 9.2 similar to previous initial hemoglobin 9.3 noted here, decrease range Hb 11.7 from few days ago at [facility]. 0700, signed out to Dr Sampson. Patient signed out to me by Dr. Azevedo I have seen evaluated patient myself. He has a history of tips, recent hospitalization at [facility] November 23 through the he had EGD paracentesis other procedures hemoglobin at that time was 11.7, today 9.3 with repeat of 9.2. EGD on November 24 showed grade 1 esophageal varices type 2 gastroesophageal varices pre-pyloric ulcers portal hypertensive gastropathy but no obvious site of bleeding Patient is sitting up right in bed reports that he has had some melena stools here in the ED no significant pain he is not dizzy or lightheaded. Vitals remained stable. 0842 Dr. Josie BOYLE at [facility], no need to transfer seems stable monitor H&H 0925 Dr. Burt, no need to transfer monitor H&H recently had EGD on the no active bleeding. 1100DrAnnemarie Kilgore, hospitalist updated on patient's symptoms test results conversations with GI and prior hospitalist difficult to transfer. He understands but reports that we will need higher level of care if he continues to bleed Patient has complicated GI history including cirrhosis tips procedure with ongoing GI bleeding. Recent admission for GI bleed DR. Whitley accepts at [facility] Discharge Plan Departure Patient Disposition: [facility] Clinical Impression: GI bleed Prescriptions: No Action furosemide 40 mg tablet 20 mg PO DAILY levothyroxine 150 mcg tablet 300 mcg PO QAM Vitamin C 100 mg Tablet 100 mg PO DAILY spironolactone 50 mg tablet 50 mg PO DAILY magnesium Tablet 1 tab PO DAILY Adults Multivitamin 18 mg iron-400 mcg-25 mcg Tablet 1 tab PO DAILY vitamin B complex-vit B12 1 tab PO DAILY levothyroxine [Synthroid] 100 mcg Tablet 300 mcg PO 0600 Qty: 30 0RF losartan 25 mg Tablet 25 mg PO DAILY Qty: 30 0RF pantoprazole 40 mg tablet,delayed release (DR/EC) 40 mg PO DAILY Qty: 30 0RF Referrals: Steve Fermin MD [Primary Care Provider] -
--- NOTE | 2024-11-29 02:25 | DI.CT.S_ITS ---
PROCEDURE: CT ANGIO ABDOMEN PELVIS INDICATIONS: GI Bleed protocol TECHNIQUE: In this patient, precontrast images as well as arterial phase and venous phase images were performed. After the administration of intravenous contrast, 2.5 mm thick sections acquired from the diaphragm to the symphysis. 10 mm maximum-intensity projection (MIP) reformats were then acquired. For radiation dose reduction, the following was used: automated exposure control. COMPARISON: [facility], CT, CT ANGIO CHEST ABDOMEN PELVIS, 02/19/2023, 16:42. FINDINGS: Image Quality: Diagnostic. Abdominal aorta: No aortic aneurysm or evidence of acute aortic syndrome. Atherosclerotic calcification is noted. No dissection flap is seen. Mesenteric arteries: Patent without hemodynamically significant stenosis. Renal arteries: Patent without hemodynamically significant stenosis. OTHER: Lower Chest: A percutaneously placed aortic valve replacement can be seen. There is a small right-sided pleural effusion. The previously seen right lower lobe ground-glass nodules are no longer definitely seen. Liver: No solid mass. A TIPS catheter is seen, which appears to be patent on the venous phase images. The liver demonstrates a nodular contour. No jose suspicious solid mass can be seen. There is prominence of the portal veins seen within the liver. Gallbladder: Removed. Biliary ducts: No biliary dilation. Pancreas: No ductal dilation. Spleen: Size is within normal limits. Adrenal Glands: No adrenal nodules. Kidneys and Ureters: No hydronephrosis. No solid mass. No complex renal cystic lesion which requires follow up. Stomach and Bowel: On the arterial phase imaging, no active bleeding can be seen. No site of gastroesophageal bleeding can be seen. Normal colonic caliber, without significant wall thickening. Colonic diverticulosis is seen, without findings of active diverticulitis. No dilated loops of small bowel are seen. Peritoneum: A small amount of ascites is seen. No free air. Upper abdominal variceal coils can be seen. Ventral Wall: No hernia. Abdominal Nodes: No retroperitoneal or mesenteric adenopathy by size criteria. Vessels: Aorta and inferior vena cava are normal in size. PELVIS: Pelvic Organs: Unremarkable. Bladder: Unremarkable. Pelvic Nodes: No enlarged lymph nodes. Miscellaneous: No inguinal hernias are seen. Bones: No aggressive osseous abnormality. Age-appropriate bony degenerative changes are seen. IMPRESSION: No site of gastrointestinal bleeding can be seen. No findings of active extravasation can be seen at the time of this study. No acute aortic abnormality is seen. Cirrhotic liver, with prominence of the portal veins seen within the liver. There is a patent TIPS catheter seen. Upper abdominal variceal coils can be seen. There is a mild amount of ascites. Additional findings: Small right-sided pleural effusion Prosthetic aortic valve Cholecystectomy Note: No significant discrepancy from the preliminary report. (However, the preliminary report mentions an occluded biliary stent, which I do not see.) Dictated by: Bart Covarrubias M.D. on 11/29/2024 at 10:23 Approved by: Bart Covarrubias M.D. on 11/29/2024 at 10:34
[2024-11-29 02:30] LABS: Add Manual Diff / Slide Review NO; Basophils Absolute Auto 100 /uL (0-100); Basophils Percent Auto 0.5 % (0-2); Eosinophils Absolute Auto 300 /uL (0-450); Eosinophils Percent Auto 2.2 % (2-4); Hematocrit 27.2 % (41-53); Hemoglobin 9.3 g/dL (13.5-17.5); Lymphocytes Absolute Auto 2100 /uL (1100-4500); Lymphocytes Percent Auto 17.9 % (25-40); Mean Corpuscular HGB Conc 34.4 % (30-36); Mean Corpuscular Hemoglobin 32.2 PG (26-34); Mean Corpuscular Volume 93.8 fL (80-100); Monocytes Absolute Auto 1700 /uL (0-900); Monocytes Percent Auto 14.8 % (3-14); Neutrophils Absolute Auto 7500 /uL (1500-7000); Neutrophils Percent Auto 64.6 % (50-75); Platelet Count 140 X10^3/uL (150-400); Red Cell Distribution Width 15.5 % (11.6-14.8); White Blood Cell Count 11.7 X10^3/uL (4.5-11.0)
[2024-11-29] MEDS: PANTOPRAZOLE 40 MG VIAL 80 MG IV (02:42)
[2024-11-29 02:45] LABS: Alanine Aminotransferase 35 IU/L (<50); Albumin 2.8 g/dL (3.5-5.0); Albumin Globulin Ratio 0.9 (1.0-2.8); Alkaline Phosphatase 241 U/L (38-126); Aspartate Aminotransferase 69 IU/L (17-59); BUN Creatinine Ratio 16.9 (6-22); Bilirubin Total 0.8 mg/dL (0.2-1.3); Blood Urea Nitrogen 26 mg/dL (9-20); Calcium 7.9 mg/dL (8.4-10.2); Carbon Dioxide 30 mmol/L (22-32); Chloride 100 mmol/L (98-107); Estimated Glomerular Filt Rate 49 mL/min (>60); Glucose 110 mg/dL (70-99); HEMOLYSIS < 15 (0-50); INR 1.3 (0.9-1.3); Lipase 202 U/L (23-300); Potassium 4.8 mmol/L (3.4-5.1); Prothrombin Time 14.2 SECONDS (9.4-12.5); Sodium 132 mmol/L (137-145); Total Protein 5.8 g/dL (6.3-8.2)
--- NOTE | 2024-11-29 04:08 | EKG_ITS ---
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
[2024-11-29 04:19] LABS: Adenovirus F 40/41 Not Detected (Not Detect); Astrovirus Not Detected (Not Detect); Campylobacter Not Detected (Not Detect); Clostridium difficile toxin AB Not Detected (Not Detect); Cryptosporidium Not Detected (Not Detect); Cyclospora cayetanensis Not Detected (Not Detect); Entamoeba histolytica Not Detected (Not Detect); Enteroaggregative E.coli Not Detected (Not Detect); Enteropathogenic E.coli Not Detected (Not Detect); Enterotoxigenic E.coli It/st Not Detected (Not Detect); Giardia lamblia Not Detected (Not Detect); Norovirus GI/GII Not Detected (Not Detect); Plesiomonsa shigelloides Not Detected (Not Detect); Rotavirus A Not Detected (Not Detect); Salmonella Not Detected (Not Detect); Sapovirus Not Detected (Not Detect); Shiga-like toxin-prod E.coli Not Detected (Not Detect); Shigella/Enteroinvasive E.coli Not Detected (Not Detect); Vibrio Not Detected (Not Detect); Vibrio cholerae Not Detected (Not Detect); Yersinia enterocolitica Not Detected (Not Detect)
[2024-11-29] MEDS: OCTREOTIDE 100 MCG/ML VIAL 50 MCG IV (04:29)
[2024-11-29] MEDS: OCTREOTIDE 500 MCG in SODIUM CHLORIDE 0.9% 100 ML 10.1 MCG IV (04:29)
[2024-11-29 04:48] LABS: Bacteria Urine None Seen; Culture Indicated Urine Cult Not Indicated; Hyaline Casts Urine None Seen; RBC Urine None Seen (0-5/HPF); Squamous Epithelial Cell Urine 0-1 /HPF (0-5/HPF); Urine Volume 10mL (spun); WBC Urine None Seen (0-5/HPF)
[2024-11-29] MEDS: ONDANSETRON 4 MG/2 ML INJ IV ×2 (04:50→16:52)
[2024-11-29] MEDS: HYDROMORPHONE 0.5 MG INJ IV ×2 (04:50→16:52)
[2024-11-29 05:08] LABS: Hemoglobin 9.2 g/dL (13.5-17.5)
[2024-11-29 15:01] LABS: Hematocrit 27.2 % (41-53); Hemoglobin 9.2 g/dL (13.5-17.5)
== END 2024-11-29 17:18 | disposition short-term general hospital (02) ==
PROVIDERS: Emergency Medicine; Emergency Provider Emergency Medicine; PCP Internal Medicine
DX: K92.2 Gastrointestinal hemorrhage, unspecified (principal); Z87.19 Personal history of other diseases of the digestive system; Z98.890 Other specified postprocedural states
CPT/HCPCS: 36415; 74174; 80053; 81003; 81015; 83690; 85014; 85018; 85025; 85610; 86850; 86900; 86901; 87507; 93005; 93010; 96365; 96366; 96375; 96376; 99284; 99285; J1171; J2354; J2405; J2470; Q9967

== ENCOUNTER 2024-12-14 19:17 | Emergency (ER) | payer MEDICARE, SELFPAY ==
[2023-02-19 20:32] VITALS: BMI 36.9
[2024-12-14] VITALS (14 sets, daily range): BP systolic 132–163; BP diastolic 61–74; PULSE 77–98; RESP 18–29; TEMP 37; O2SAT 91–97; BMI 37.6
--- NOTE | 2024-12-14 19:49 | ED.ABDPAIN ---
HPI - Abdominal Pain General Chief Complaint: Abdominal Pain Stated Complaint: Abdominal Pain, Vomiting, Chills Time Seen by Provider: 12/14/24 19:41 Source: patient Mode of arrival: Wheelchair History of Present Illness HPI narrative: 69-year-old gentleman history of liver cirrhosis secondary to chronic liver disease last drank 4 years ago status post tips procedure at [facility] twice including a revision back on 11/20/2024 admitted most recently in [facility] for GI bleed presents today with continued worsening abdominal pain radiating to the back along with nausea but no vomiting or diarrhea or blood in the stool or urine. Patient denies fever, chills, cough, runny nose, sore throat, chest pain, other than what is stated 14 point review of system is negative. Related Data Home Medications Medication Instructions Recorded Confirmed ascorbic acid (vitamin C) 100 mg 100 mg PO DAILY 02/19/23 02/19/23 tablet (Vitamin C) furosemide 40 mg tablet 20 mg PO DAILY 02/19/23 02/19/23 levothyroxine 150 mcg tablet 300 mcg PO QAM 02/19/23 02/19/23 magnesium 1 tab PO DAILY 02/19/23 02/19/23 multivit with minerals-iron 18 1 tab PO DAILY 02/19/23 02/19/23 mg-folic ac 400 mcg-vit K 25 mcg tablet (Adults Multivitamin) spironolactone 50 mg tablet 50 mg PO DAILY 02/19/23 02/19/23 vitamin B complex-vit B12 1 tab PO DAILY 02/19/23 02/19/23 Previous Rx's Medication Instructions Recorded levothyroxine 100 mcg tablet 300 mcg (3 x 100 mcg) PO 0600 #30 02/20/23 (Synthroid) tabs losartan 25 mg tablet 25 mg PO DAILY #30 tabs 02/20/23 pantoprazole 40 mg tablet,delayed 40 mg PO DAILY #30 tabs 02/20/23 release Allergies Allergy/AdvReac Type Severity Reaction Status Date / Time acetaminophen [From Tylenol] Allergy Intermediate Verified 12/17/19 07:21 Review of Systems Review of Systems ROS Unobtainable: All systems reviewed & are unremarkable except as noted in HPI and below Patient History Medical History Essential hypertension History of kidney stones Hypothyroidism (acquired) Surgical History Status post laparoscopic cholecystectomy Social History household members: spouse Smoking Status: Never smoker alcohol intake: former substance use type: marijuana Smoking Status: Never smoker alcohol intake frequency: holidays/special occasions only Exam Narrative Exam Narrative: GENERAL: [69] year old patient appears stated age. Well-developed patient, in mild distress. HEAD: Atraumatic. Normocephalic. EYES: Pupils equal round and reactive. Extraocular motions intact. No scleral icterus. No injection or drainage. ENT: Nose without bleeding, purulent drainage. Throat without erythema, tonsillar hypertrophy or exudate. Airway patent. NECK: Trachea midline. Non tender CARDIOVASCULAR: Regular rate and rhythm without murmurs, gallops, or rubs. RESPIRATORY: Clear to auscultation. Breath sounds equal bilaterally. No wheezes, rales, or rhonchi. GASTROINTESTINAL: Abdomen soft, epigastric TTP but no r/r/g, nondistended. EXTREMITIES: No edema or joint tenderness. BACK: Nontender without deformity or crepitance. No flank tenderness. NEURO: AOx3. SKIN: No rash or erythema of visible areas Initial Vital Signs Initial Vital Signs: Vital Signs Temperature 98.6 F 12/14/24 19:28 Pulse Rate 98 H 12/14/24 19:28 Respiratory Rate 18 12/14/24 19:28 Blood Pressure 132/67 12/14/24 19:28 Pulse Oximetry 95 12/14/24 19:28 Oxygen Delivery Method Room Air 12/14/24 19:28 Course Orders Ordered: ED Orders 12/14/24 19:32 EKG-12 Lead Stat 12/14/24 19:50 Complete Blood Count AUTO DIFF Stat Comprehensive Metabolic Panel Stat Lipase Stat 12/14/24 19:51 CT abdomen pelvis w con Stat 12/14/24 19:52 Prothrombin Time INR Stat 12/14/24 20:45 Urine Microscopic Stat Ondansetron HCl (Ondansetron 4 Mg/2 Ml Inj) 4 mg IV NOW PRN PRN Reason: Nausea And Vomiting Ondansetron HCl (Ondansetron 4 Mg Odt) 4 mg PO NOW PRN PRN Reason: Nausea And Vomiting Discontinued Medications Hydromorphone HCl (Hydromorphone 1 Mg Inj) 1 mg IV NOW ONE Stop: 12/14/24 19:53 Last Admin: 12/14/24 19:58 Dose: 1 mg Documented By: Ondansetron HCl (Ondansetron 4 Mg/2 Ml Inj) 4 mg IV NOW ONE Stop: 12/14/24 19:52 Last Admin: 12/14/24 19:59 Dose: 4 mg Documented By: Vital Signs Vital signs: Vital Signs - 8 hr 12/14/24 19:28 12/14/24 19:39 12/14/24 19:40 Temperature 98.6 F Pulse Rate 98 H 95 H Respiratory Rate 18 Blood Pressure 132/67 154/72 H Pulse Oximetry 95 95 Oxygen Delivery Method Room Air 12/14/24 20:13 12/14/24 20:21 12/14/24 20:21 Temperature Pulse Rate 94 H 93 H Respiratory Rate 23 26 H Blood Pressure 154/70 H Pulse Oximetry 91 92 Oxygen Delivery Method 12/14/24 20:30 12/14/24 20:30 Temperature Pulse Rate 98 H Respiratory Rate 27 H Blood Pressure 143/64 H Pulse Oximetry 93 Oxygen Delivery Method MDM - Abdominal Pain Lab Data 12/14/24 19:50 12/14/24 19:50 Labs: Lab Results 12/14/24 12/14/24 12/14/24 Range/Units 19:50 19:52 20:45 WBC 9.2 (4.5-11.0) X10^3/uL RBC 3.16 L (4.5-5.9) X10^6/uL Hgb 9.1 L (13.5-17.5) g/dL Hct 27.7 L (41-53) % MCV 87.5 (80-100) fL MCH 28.9 (26-34) PG MCHC 33.0 (30-36) % RDW 16.5 H (11.6-14.8) % Plt Count 122 L (150-400) X10^3/uL Neut % (Auto) 65.8 (50-75) % Lymph % (Auto) 13.1 L (25-40) % Cook % (Auto) 18.0 H (3-14) % Eos % (Auto) 2.1 (2-4) % Baso % (Auto) 1.0 (0-2) % Neut # (Auto) 6100 (8853-0350) /uL Lymph # (Auto) 1200 (5002-9062) /uL Cook # (Auto) 1700 H (0-900) /uL Eos # (Auto) 200 (0-450) /uL Baso # (Auto) 100 (0-100) /uL PT 13.2 H (9.4-12.5) SECONDS INR 1.2 (0.9-1.3) Sodium 130 L (137-145) mmol/L Potassium 4.1 (3.4-5.1) mmol/L Chloride 94 L (98-107) mmol/L Carbon Dioxide 31 (22-32) mmol/L BUN 18 (9-20) mg/dL Creatinine 1.50 H (0.66-1.25) mg/dL Estimated GFR 50 L (>60) mL/min BUN/Creatinine Ratio 12.0 (6-22) Glucose 144 H (70-99) mg/dL Calcium 8.2 L (8.4-10.2) mg/dL Total Bilirubin 1.1 (0.2-1.3) mg/dL AST 81 H (17-59) IU/L ALT 45 (<50) IU/L Alkaline Phosphatase 359 H (38-126) U/L Total Protein 6.8 (6.3-8.2) g/dL Albumin 3.2 L (3.5-5.0) g/dL Globulin 3.6 (1.7-4.1) g/dL Albumin/Globulin Ratio 0.9 L (1.0-2.8) Lipase 228 (23-300) U/L Urine RBC 1-5/hpf (0-5/HPF) Urine WBC None seen (0-5/HPF) Ur Squamous Epith Cells 1-5 /hpf (0-5/HPF) Urine Bacteria None seen (None) Ur Culture Indicated? Cult not indicated Vol Urine Centrifuged 10ml (spun) Point of care testing: Urine Dip Bedside Urine Glucose Negative Bedside Urine Bilirubin - Negative Bedside Urine Ketone - Negative Urine Specific [place]verse 1.010 Bedside Urine Occult Blood - Negative Bedside Urine pH 7.0 Bedside Urine Protein +/- 15 Bedside Urine Urobilinogen - Negative Bedside Urine Nitrite - Negative Bedside Urine Leukocytes - Negative Esterase Imaging Data CT scan - abdomen/pelvis: Radiologist's Impression: [address] [address] [address] Scan Report Signed Patient: Deo Chambers MR#: [id number] : 1955 Acct:[id number] Age/Sex: 69 / M Date of Service: 12/14/24 Loc: ED Accession Number: [id number] Procedure: CT abdomen pelvis w con Ordering Provider: Delvis Cohen D.O. PROCEDURE: CT ABDOMEN PELVIS W CON INDICATIONS: abd pain/n/v TECHNIQUE: After the administration of intravenous contrast, axial sections acquired from the lung bases to the pubic symphysis. Coronal and sagittal reformats were performed. For radiation dose reduction, the following was used: automated exposure control, adjustment of mA and/or kV according to patient size. COMPARISON: [facility], CT, CT ANGIO ABDOMEN PELVIS, 11/29/2024, 2:36. FINDINGS: Image quality: Diagnostic Lower chest: Increased, [id number] right pleural effusion. Aortic valve replacement partially seen. Periesophageal and esophageal varices are present. Coronary calcifications Liver: Cirrhotic liver with TIPS in place. The parenchyma is not well assessed on this single phase study. ill-defined hypoechoic areas are seen throughout the liver with expansion of the portal system Gallbladder and biliary system: Mildly ectatic CBD at 1.1 cm. Cholecystectomy clips. Pancreas: No ductal dilation Spleen: Borderline enlarged at 13-14 cm Adrenals: No discrete nodules Kidneys: No solid renal mass. No hydronephrosis Vessels and lymph nodes: Expanded portal system with abnormal opacification around the TIPS stent. Prominent retroperitoneal and periportal lymph nodes, possibly reactive to liver disease. Upper abdominal moderate varices, including gastric varices. No abdominal aortic aneurysm Bowel and peritoneum: Mild gastric wall thickening and scattered small bowel wall thickening. Distal colonic wall thickening with diverticula also present. Trace ascites. [id number] central mesenteric fat stranding, possibly congested Body wall: Similar soft tissue thickening around the umbilicus and small left inguinal hernia Pelvis: Bladder is unremarkable. Bones: There are degenerative osseous changes. IMPRESSION: Suspicion for infiltrative hepatocellular carcinoma with tumor in vein that surrounds the TIPS stent not well assessed on this single phase CT. A liver protocol MRI (please specify Gadavist contrast) is recommended. If not immediately available, Doppler ultrasound could further assess the portal system and TIPS. Cirrhosis and sequela of portal hypertension. Increased, [id number] right pleural effusion. Scattered bowel and gastric wall thickening, possibly gastritis and enterocolitis versus portal congestion. More focal wall thickening seen in the distal colon with diverticula, for which colonoscopy follow-up is suggested if not recently obtained. Other findings above. Dictated by: Prasad Reynolds M.D. on 12/14/2024 at 20:40 Approved by: Prasad Reynolds M.D. on 12/14/2024 at 20:47 [facility] Narrative Medical decision making narrative: All lab work vital signs nurse triage note medication list previous ER visits and all imaging studies have been reviewed. CT scan today showed suspicion for infiltrative HCC with tumor and vein that is around the tip stent not well assessed on this single phase CT increased mild to moderate right pleural effusion along with cirrhosis and sequela of portal hypertension. Scattered bowel and gastric wall thickening possibly gastritis and enteric colitis versus oral congestion. Case was discussed with GI MD who advised patient to be transferred and to have hospitalist service admit patient for which I spoke with Dr. Aureliano Gordon hospitalist who has graciously accepted the patient for inpatient admission. Discharge Plan Departure Patient Disposition: [facility] Clinical Impression: Abdominal pain Qualifiers: Abdominal location: generalized Qualified Code(s): R10.84 - Generalized abdominal pain Nausea & vomiting Qualifiers: Vomiting type: unspecified Qualified Code(s): R11.2 - Nausea with vomiting, unspecified Prescriptions: No Action furosemide 40 mg tablet 20 mg PO DAILY levothyroxine 150 mcg tablet 300 mcg PO QAM Vitamin C 100 mg Tablet 100 mg PO DAILY spironolactone 50 mg tablet 50 mg PO DAILY magnesium Tablet 1 tab PO DAILY Adults Multivitamin 18 mg iron-400 mcg-25 mcg Tablet 1 tab PO DAILY vitamin B complex-vit B12 1 tab PO DAILY levothyroxine [Synthroid] 100 mcg Tablet 300 mcg PO 0600 Qty: 30 0RF losartan 25 mg Tablet 25 mg PO DAILY Qty: 30 0RF pantoprazole 40 mg tablet,delayed release (DR/EC) 40 mg PO DAILY Qty: 30 0RF Referrals: Steve Fermin MD [Primary Care Provider] -
[2024-12-14] MEDS: HYDROMORPHONE 1 MG INJ IV (19:58)
[2024-12-14] MEDS: ONDANSETRON 4 MG/2 ML INJ IV (19:59)
[2024-12-14 20:08] LABS: Albumin 3.2 g/dL (3.5-5.0); HEMOLYSIS < 15 (0-50)
[2024-12-14 20:10] LABS: Alanine Aminotransferase 45 IU/L (<50); Albumin Globulin Ratio 0.9 (1.0-2.8); Alkaline Phosphatase 359 U/L (38-126); Aspartate Aminotransferase 81 IU/L (17-59); Bilirubin Total 1.1 mg/dL (0.2-1.3); Blood Urea Nitrogen 18 mg/dL (9-20); Calcium 8.2 mg/dL (8.4-10.2); Chloride 94 mmol/L (98-107); Estimated Glomerular Filt Rate 50 mL/min (>60); Globulin 3.6 g/dL (1.7-4.1); Glucose 144 mg/dL (70-99); Lipase 228 U/L (23-300); Potassium 4.1 mmol/L (3.4-5.1); Sodium 130 mmol/L (137-145); Total Protein 6.8 g/dL (6.3-8.2)
[2024-12-14 20:11] LABS: Carbon Dioxide 31 mmol/L (22-32)
[2024-12-14 20:12] LABS: Add Manual Diff / Slide Review NO; Basophils Absolute Auto 100 /uL (0-100); Eosinophils Absolute Auto 200 /uL (0-450); Eosinophils Percent Auto 2.1 % (2-4); Hematocrit 27.7 % (41-53); Hemoglobin 9.1 g/dL (13.5-17.5); Lymphocytes Absolute Auto 1200 /uL (1100-4500); Lymphocytes Percent Auto 13.1 % (25-40); Mean Corpuscular Hemoglobin 28.9 PG (26-34); Mean Corpuscular Volume 87.5 fL (80-100); Monocytes Absolute Auto 1700 /uL (0-900); Neutrophils Absolute Auto 6100 /uL (1500-7000); Neutrophils Percent Auto 65.8 % (50-75); Platelet Count 122 X10^3/uL (150-400); Red Blood Cell Count 3.16 X10^6/uL (4.5-5.9); Red Cell Distribution Width 16.5 % (11.6-14.8); White Blood Cell Count 9.2 X10^3/uL (4.5-11.0)
[2024-12-14 20:46] LABS: INR 1.2 (0.9-1.3); Prothrombin Time 13.2 SECONDS (9.4-12.5)
[2024-12-14 21:27] LABS: Bacteria Urine None Seen; Culture Indicated Urine Cult Not Indicated; RBC Urine 1-5/HPF (0-5/HPF); Squamous Epithelial Cell Urine 1-5 /HPF (0-5/HPF); Urine Volume 10mL (spun); WBC Urine None Seen (0-5/HPF)
--- NOTE | 2024-12-14 22:51 | PC.NURSE ---
paged GI for this pt at [facility]. 0993 pt has been accepted by hospitalist DR. Aureliano Gordon at [facility]
--- NOTE | 2024-12-14 23:04 | PC.NURSE ---
Pt desats to 88% RA while sleeping. Placed on 1L NC. Pt denies sleep apnea but offers he was last discharged from [facility] on home O2. Pt could not give this RN the reason why he was DC on oxygen and stated he doesn't really like to use it.
--- NOTE | 2024-12-14 23:59 | PC.NURSE ---
Pt activates call light. This RN anwsers and pt has removed himself from VS monitoring stating it is hard to sleep with all these wires. I am all tangled. An offer was made to reposition and sort the cords. Pt declined. Pt further states he will not be transferring until morning so NPO is ibrahima stupid. MD is aware of pt request for diet change and to be allowed to sleep w/intermittent VS monitoring. Pt agreeable to remain on 1L NC d/t desating while asleep.
[2024-12-15 02:31] VITALS: PULSE 100; RESP 22; O2SAT 94
[2024-12-15 02:32] VITALS: BP 149/70; PULSE 98; RESP 18; O2SAT 94
== END 2024-12-15 02:40 | disposition short-term general hospital (02) ==
PROVIDERS: Emergency Provider Family Medicine; PCP Internal Medicine
DX: R10.84 Generalized abdominal pain (principal); R11.2 Nausea with vomiting, unspecified
CPT/HCPCS: 36415; 74177; 80053; 81003; 81015; 83690; 85025; 85610; 96374; 96375; 99284; 99285; J1171; J2405; Q9967